=== PATIENT | female | born 1965 | race Caucasian/White ===

== ENCOUNTER → 2017-03-06 | Outpatient (CLI) | payer OTHER ==
[~2017-03-06] MED LIST: ACET500C OR; ALPR0.25 PO; AMBI10TA OR; CYMB1CAP4 PO; ENAL10TA2 OR; ENAL20TA PO; FIORICET OR; FOLI1TAB4 PO; HYDROCODONE OR; METO1TAB33 PO; OMEP40CA2 PO; VITAMIN D50000 UNT OR
--- NOTE | 2017-03-06 12:11 | REPMRS ---
Patient History The patient states she had a clinical breast exam in 02/2017. Patient is postmenopausal. Family history of breast cancer in paternal aunt at age 72 and breast cancer in paternal aunt at age 50 or over. Reductions of both breasts, 2010. Digital Woman Screen Mammo: March 06, 2017 - Exam #: [id number] Bilateral CC and MLO view(s) were taken. Technologist: Joanne Kowalski, Technologist Prior study comparison: July 23, 2016, left breast digital mammo diagnostic unilateral, performed at [facility]. March 05, 2016, digital woman screen mammo performed at [facility]. FINDINGS: The breast tissue is heterogeneously dense. This may lower the sensitivity of mammography. There has been no change in the appearance of the mammogram from the prior studies. There is a moderate amount of residual fibroglandular tissue which is fairly symmetric. There is no interval development of dominant mass, areas of architectural distortion, or clustered microcalcification typical of malignancy. ASSESSMENT: BI-RADS/ACR category 1 mammogram. Negative. Recommendation Routine screening mammogram in 1 year (for women over age 40). This mammogram was interpreted with the aid of an FDA-approved computer-aided dectection system. Electronically Signed By: Abhishek Fuchs MD 03/06/17 [id number]
== END ==
LOC: M WHC 10:36
PROVIDERS: ATTEND Nurse Practitioner Women's Health
DX: Z12.31 Encounter for screening mammogram for malignant neoplasm of breast (principal)

== ENCOUNTER → 2017-03-06 | Outpatient (REF) | payer OTHER | LOC: M SFHCWAGY 10:43 | PROVIDERS: ATTEND Nurse Practitioner Women's Health | DX: Z12.4 Encounter for screening for malignant neoplasm of cervix (principal) ==

== ENCOUNTER → 2017-03-19 | Outpatient (REF) | payer OTHER ==
[2017-03-19 15:12] LABS: ALBUMIN/GLOBULIN RATIO 1.03 (1.00-1.93); ALKALINE PHOSPHATASE 111 U/L (45-117); ALT/SGPT 135 U/L (12-78); ANION GAP 9 MEQ/L (8-16); AST/SGOT 82 U/L (15-37); BILIRUBIN,TOTAL 0.5 MG/DL (0.2-1.0); BLOOD UREA NITROGEN 10 MG/DL (7-18); CALCIUM LEVEL 9.5 MG/DL (8.5-10.1); CARBON DIOXIDE LEVEL 30 MEQ/L (21-32); CHLORIDE LEVEL 95 MEQ/L (98-107); CHOLESTEROL LEVEL 212 MG/DL (<200); CREATININE FOR GFR 0.62 MG/DL (0.55-1.02); FREE T4 0.87 NG/DL (0.76-1.46); GLOMERULAR FILTRATION RATE > 60.0 (>51); GLUCOSE, FASTING 93 MG/DL (70-105); POTASSIUM SERUM 3.4 MEQ/L (3.5-5.1); SODIUM LEVEL 134 MEQ/L (136-145); TOTAL PROTEIN 7.9 GM/DL (6.4-8.2); TRIGLYCERIDES LEVEL 96 MG/DL (<150)
== END ==
LOC: M SFHCPLAZ 11:07
PROVIDERS: ATTEND Nurse Practitioner Family
DX: F32.9 Major depressive disorder, single episode, unspecified (principal); I10 Essential (primary) hypertension

== ENCOUNTER → 2017-05-07 | Outpatient (REF) | payer OTHER ==
[2017-05-07 14:40] LABS: ALBUMIN/GLOBULIN RATIO 1.08 (1.00-1.93); ALKALINE PHOSPHATASE 106 U/L (45-117); ALT/SGPT 50 U/L (12-78); ANION GAP 10 MEQ/L (8-16); AST/SGOT 26 U/L (15-37); BILIRUBIN,TOTAL 0.5 MG/DL (0.2-1.0); BLOOD UREA NITROGEN 18 MG/DL (7-18); CALCIUM LEVEL 9.4 MG/DL (8.5-10.1); CARBON DIOXIDE LEVEL 31 MEQ/L (21-32); CHLORIDE LEVEL 98 MEQ/L (98-107); CREATININE FOR GFR 0.69 MG/DL (0.55-1.02); GLOMERULAR FILTRATION RATE > 60.0 (>51); GLUCOSE, FASTING 89 MG/DL (70-105); POTASSIUM SERUM 3.1 MEQ/L (3.5-5.1); SODIUM LEVEL 139 MEQ/L (136-145); TOTAL PROTEIN 7.7 GM/DL (6.4-8.2)
== END ==
LOC: M SFHCPLAZ 10:46
PROVIDERS: ATTEND Nurse Practitioner Family
DX: R74.8 Abnormal levels of other serum enzymes (principal)

== ENCOUNTER → 2017-05-11 | Outpatient (REF) | payer OTHER | LOC: M SFHCWAGY 13:29 | PROVIDERS: ATTEND Nurse Practitioner Women's Health | DX: R87.810 Cervical high risk human papillomavirus (HPV) DNA test positive (principal) ==

== ENCOUNTER → 2017-05-20 | Outpatient (REF) | payer OTHER ==
[2017-05-20 13:50] LABS: ANION GAP 5 MEQ/L (8-16); BLOOD UREA NITROGEN 12 MG/DL (7-18); CALCIUM LEVEL 9.3 MG/DL (8.5-10.1); CARBON DIOXIDE LEVEL 34 MEQ/L (21-32); CHLORIDE LEVEL 96 MEQ/L (98-107); CREATININE FOR GFR 0.71 MG/DL (0.55-1.02); GLOMERULAR FILTRATION RATE > 60.0 (>51); GLUCOSE, FASTING 86 MG/DL (70-105); POTASSIUM SERUM 3.4 MEQ/L (3.5-5.1); SODIUM LEVEL 135 MEQ/L (136-145)
== END ==
LOC: M SFHCPLAZ 11:10
PROVIDERS: ATTEND Nurse Practitioner Family
DX: J06.9 Acute upper respiratory infection, unspecified (principal); I10 Essential (primary) hypertension; R74.8 Abnormal levels of other serum enzymes; G43.109 Migraine with aura, not intractable, without status migrainosus

== ENCOUNTER → 2017-07-08 | Outpatient (REF) | payer OTHER ==
[2017-07-08 13:49] LABS: ANION GAP 7 MEQ/L (8-16); BLOOD UREA NITROGEN 17 MG/DL (7-18); CALCIUM LEVEL 9.2 MG/DL (8.5-10.1); CARBON DIOXIDE LEVEL 31 MEQ/L (21-32); CHLORIDE LEVEL 99 MEQ/L (98-107); CREATININE FOR GFR 0.67 MG/DL (0.55-1.02); GLOMERULAR FILTRATION RATE > 60.0 (>51); GLUCOSE, FASTING 85 MG/DL (70-105); POTASSIUM SERUM 3.9 MEQ/L (3.5-5.1); SODIUM LEVEL 137 MEQ/L (136-145)
== END ==
LOC: M SFHCPLAZ 11:07
PROVIDERS: ATTEND Nurse Practitioner Family
DX: I10 Essential (primary) hypertension (principal)

== ENCOUNTER 2017-07-30 00:30 | Inpatient (IN) | payer OTHER ==
[~2017-07-30] VITALS: Ht 149.9 cm; Wt 50.0 kg
[2017-07-30] MEDS ORDERED: TRAZ50TA11 PO (00:41)
[2017-07-30] MEDS ORDERED: ROBA750T4 PO (00:41)
[2017-07-30] MEDS ORDERED: NS 1,000 ML IV ONE (01:00)
[2017-07-30 01:06] LABS: BASO # 0.1 10^3/uL (0.0-0.2); BASO % 0.8 % (0.0-1.0); EOS # 0.4 10^3/uL (0.0-0.50); EOS % 3.8 % (0.0-3.0); IMMATURE GRANULOCYTE % 0.3 % (0-0); LYMPH # 3.8 10^3/uL (1.5-4.5); MEAN CORPUSCULAR HEMOGLOBIN 29.8 pg (27.0-33.0); MEAN CORPUSCULAR HGB CONC 34.5 g/dl (32.0-36.5); MEAN CORPUSCULAR VOLUME 86.2 fl (80.0-96.0); MONO # 0.7 10^3/uL (0.0-0.8); MONO % 7.8 % (0.0-5.0); NEUTROPHILS # 4.3 10^3/uL (1.8-7.7); NEUTROPHILS % 46.3 % (36.0-66.0); PLATELET COUNT, AUTOMATED 254 10^3/uL (150-450); RED CELL DISTRIBUTION WIDTH 11.9 % (11.5-14.5); WHITE BLOOD COUNT 9.3 10^3/uL (4.0-10.0)
[2017-07-30 01:12] LABS: VENOUS BASE EXCESS -0.1 (-2.0-2.0); VENOUS PARTIAL PRESSURE CO2 56.7 mmHg (38.0-50.0); VENOUS PARTIAL PRESSURE O2 30.7 mmHg (30.0-50.0); VENOUS STANDARD HCO3 23.1 MEQ/L; VENOUS TOTAL CO2 29.2 MEQ/L (24.0-28.0)
[2017-07-30 02:09] LABS: ABG BASE EXCESS -4.1 (-2.0-2.0); ABG HCO3 21.9 MEQ/L (22.0-26.0); ABG PARTIAL PRESSURE CO2 43.6 mmHg (35.0-45.0); ABG TOTAL CO2 23.2 MEQ/L (22.0-29.0); ABG pH (ARTERIAL) 7.319 UNITS (7.350-7.450)
[2017-07-30 02:11] LABS: ALBUMIN/GLOBULIN RATIO 0.91 (1.00-1.93); ALKALINE PHOSPHATASE 114 U/L (45-117); ALT/SGPT 54 U/L (12-78); ANION GAP 8 MEQ/L (8-16); AST/SGOT 36 U/L (7-37); BILIRUBIN,DIRECT < 0.1 MG/DL (0.0-0.2); BILIRUBIN,TOTAL 0.4 MG/DL (0.2-1.0); BLOOD UREA NITROGEN 10 MG/DL (7-18); CALCIUM LEVEL 8.9 MG/DL (8.5-10.1); CARBON DIOXIDE LEVEL 30 MEQ/L (21-32); CHLORIDE LEVEL 100 MEQ/L (98-107); GLOMERULAR FILTRATION RATE > 60.0 (>51); GLUCOSE, FASTING 111 MG/DL (70-105); POTASSIUM SERUM 3.1 MEQ/L (3.5-5.1); SODIUM LEVEL 138 MEQ/L (136-145); TOTAL PROTEIN 8.4 GM/DL (6.4-8.2)
[2017-07-30] MEDS ORDERED: POTASSIUM CHLORIDE 10 MEQ SR TABLET PO ONE (02:30)
[2017-07-30 02:43] LABS: METHADONE URINE NEGATIVE (NEGATIVE)
[2017-07-30 05:26] LABS: VENOUS O2 SATURATION 98.4 % (60.0-80.0); VENOUS PARTIAL PRESSURE CO2 43.4 mmHg (38.0-50.0); VENOUS PARTIAL PRESSURE O2 130.5 mmHg (30.0-50.0); VENOUS TOTAL CO2 24.1 MEQ/L (24.0-28.0)
--- NOTE | 2017-07-30 05:57 | ECGEPIP ---
Stationary ECG Study [facility] - ED Test Date: 2017-07-30 Pat Name: VITO ORTEGA Department: Room: - Gender: F [employer] Hand: LAURA : 1965 Requested By: TAWANDA Infante Order Number: [id number] Reading MD: Eladio Mike Measurements Intervals [place] Rate: 66 P: 47 MI: 148 QRS: 7 QRSD: 92 T: 20 QT: 427 QTc: 450 Interpretive Statements SINUS RHYTHM POSSIBLE LEFT ATRIAL ENLARGEMENT INCOMPLETE RIGHT BUNDLE BRANCH BLOCK NSTTW ABNORMALITIES Electronically Signed On 07-30-2017 5:57:30 EST by Eladio Mike
[2017-07-30] MEDS: CHLORTHALIDONE 12.5MG PER 1/2 TABLET PO SCH (09:00)
[2017-07-30] MEDS ORDERED: ESCITALOPRAM OXALATE 10 MG TAB (LEXAPRO) PO SCH (09:00)
[2017-07-30] MEDS: METOPROLOL SUCC (TopROL XL) 100MG *XL* TAB PO SCH (09:00)
[2017-07-30] MEDS: MULTIVITAMINS/MINERALS THERAP 1 TAB PO SCH (09:00)
[2017-07-30] MEDS ORDERED: MOM 30ML SUSPENSION UDC PO PRN (09:30)
[2017-07-30] MEDS ORDERED: hydrOXYzine 50 MG TAB PO PRN ×2 (09:30→14:00)
[2017-07-30 10:50] VITALS: BP 136/65
[2017-07-30] MEDS ORDERED: LORazepam 2 MG TAB PO PRN (14:15)
[2017-07-30] MEDS: OMEPRAZOLE 20 MG CAP PO SCH (14:52)
[2017-07-30] MEDS: FOLIC ACID 1 MG TAB PO SCH (14:53)
[2017-07-30] MEDS: valACYclovir HCL 500 MG TAB PO SCH (14:53)
[2017-07-30] MEDS: POTASSIUM CHLORIDE 10 MEQ SR TABLET PO SCH (14:53)
[2017-07-30] MEDS: THIAMINE 100 MG TAB PO SCH ×2 (14:53→21:48)
[2017-07-30] MEDS: ENALAPRIL MALEATE 10 MG TAB PO SCH (14:55)
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
[2017-07-30] MEDS: DULoxetine 30 MG CAP (CYMBALTA) PO SCH (17:53)
[2017-07-30 18:00] VITALS: BP 113/81
[2017-07-30] MEDS: traZODone 50 MG TAB PO PRN (21:48)
[2017-07-31 06:42] VITALS: BP_SYST 140; BP_SYST 158; BP_DIAS 89; BP_DIAS 90
[2017-07-31] MEDS: valACYclovir HCL 500 MG TAB PO SCH (09:35)
[2017-07-31] MEDS: CHLORTHALIDONE 12.5MG PER 1/2 TABLET PO SCH (09:36)
[2017-07-31] MEDS: ENALAPRIL MALEATE 10 MG TAB PO SCH (09:36)
[2017-07-31] MEDS: METOPROLOL SUCC (TopROL XL) 100MG *XL* TAB PO SCH (09:36)
[2017-07-31] MEDS: OMEPRAZOLE 20 MG CAP PO SCH (09:37)
[2017-07-31] MEDS: FOLIC ACID 1 MG TAB PO SCH (09:37)
[2017-07-31] MEDS: DULoxetine 30 MG CAP (CYMBALTA) PO SCH (09:37)
[2017-07-31] MEDS: THIAMINE 100 MG TAB PO SCH ×2 (09:37→22:09)
[2017-07-31] MEDS: MULTIVITAMINS/MINERALS THERAP 1 TAB PO SCH (09:37)
[2017-07-31] MEDS: POTASSIUM CHLORIDE 10 MEQ SR TABLET PO SCH (09:37)
[2017-07-31 10:59] VITALS: BP 140/90
--- NOTE | 2017-07-31 10:59 | MHIPNPDOC ---
[facility] Progress Note Progress Note DATE OF SERVICE: 07/31/17 HISTORY: Patient says she was trying to sleep and tying to relax and for that reason she took more trazodone and muscle relaxants. She adds: " I know it was really stupid and I shouldn't have done it but I know I don't belong in this place" History of Present Illness HISTORY OF THE PRESENT ILLNESS: As per ED note: "Pt has a hx of alcohol abuse and depression. Texted her BF last night after being out drinking with a friend , and made suicidal statements, saying "goodby". Pt has multiple stressors including the holidays and loss of her 3 years ago. Pt denies current SI , although does admit to recent suicidal thoughts. She has a long hx of poor sleep and says she was "Just trying to sleep" last night when she ingested unknown number of pills (per BF, this included muscle relaxers, xanax and Trazodone). She sees a therapist bi-weekly and receives medications through her PCP. Pt is minimizing her situation during interview.She does admit to increasing her use of alcohol since her 's . The BF says pt has been using more alcohol than she will admit to and shared pt's text messages with this typewriters functional tester. He rushed over to pt's house last night and found her incoherent and then brought her to the ER." VITAL SIGNS: See below. NEW TEST RESULTS: N/A CURRENT MEDICATIONS: See below. MENTAL STATUS EXAMINATION: Patient is a 52year old female, who is alert, dressed in personal clothes, with good eye contact, good hygiene, fairly groomed. Speech: Is Normal in rate, tone and volume. Language skills are Good. Thought processes including: Linear, rational. Thought content: stephon believes she doesn't need to be here, she can follow up as an OP. Abstract reasoning, and computation: Fair. Description of associations: Good Description of abnormal or psychotic thoughts: Denies SI, denies HI, denies thought delusions, denies a/V hallucinations Judgment:Limited. Insight: Limited. Orientation: oriented x 3. Recent and remote memory: Oriented x 3. Attention span and concentration: Fair. Language: Fair. Fund of knowledge: Fair. Mood: Anxious. Affect: Anxious. DIAGNOSES: 1. Major Depressive Disorder, severe, recurrent 2. Alcohol use disorder ASSESSMENT: Patient continues to minimize her mental illness, but admits, like she did yesterday, that she needs help with the alcohol abuse. She says she went to a psychiatrist in [place] before and he over medicated her. I told her we can try to connect her to [facility] if her insurance permits, ans she won't be over medicated. Will try to discharge her on Thursday. MANAGEMENT PLAN: Discharge her on Thursday, ill continue on the same medications TIME SPENT: 20 minutes. Vital Signs Vital Signs Date Time Temp Pulse Resp B/P (MAP) Pulse Ox O2 Delivery O2 Flow Rate FiO2 07/31/17 09:36 83 140/90 07/31/17 06:42 97.7 18 07/30/17 10:50 100 Room Air Current Medications Current Medications Acetaminophen (Tylenol Tab) 650 mg Q6HP PRN PO HEADACHE or DISCOMFORT; Start 07/30/17 at 09:30; Stop 08/29/17 at 09:29 Chlorthalidone (Hygroton, Chlorthalidone) 12.5 mg DAILY PO Last administered on 07/31/17 09:36; Start 07/30/17 at 09:00; Stop 08/29/17 at 08:59 Duloxetine HCl (Cymbalta) 60 mg DAILY PO Last administered on 07/31/17 09:37; Start 07/30/17 at 09:00; Stop 08/29/17 at 08:59 Enalapril Maleate (Vasotec) 20 mg DAILY PO Last administered on 07/31/17 09:36 ; Start 07/30/17 at 09:00; Stop 08/29/17 at 08:59 Escitalopram Oxalate (Lexapro) 20 mg DAILY PO Last administered on 07/30/17 09 :54; Start 07/30/17 at 09:00; Stop 07/30/17 at 17:14; Status DC Folic Acid (Folic Acid) 1 mg DAILY PO Last administered on 07/31/17 09:37; Start 07/30/17 at 09:00; Stop 08/29/17 at 08:59 Hydroxyzine HCl (Atarax) 50 mg Q6HP PRN PO ANXIETY/AGITATION; Start 07/30/17 at 09:30; Stop 08/29/17 at 09:29 Hydroxyzine HCl (Atarax) 50 mg Q6HP PRN PO ANXIETY/AGITATION; Start 07/30/17 at 14:00; Stop 08/29/17 at 13:59; Status Cancel Lorazepam (Ativan) 2 mg ASDIRECTED PRN PO SEE PROTOCOL; Start 07/30/17 at 14:15 ; Stop 08/06/17 at 14:14 Magnesium Hydroxide (Milk Of Magnesia) 30 ml DAILYPRN PRN PO CONSTIPATION; Start 07/30/17 at 09:30; Stop 08/29/17 at 09:29 Metoprolol Succinate (TopROL XL) 100 mg DAILY PO Last administered on 09:36; Start 07/30/17 at 09:00; Stop 08/29/17 at 08:59 Multivitamins (Theragram-M) 1 tab DAILY PO Last administered on 07/31/17 09:37 ; Start 07/30/17 at 09:00; Stop 08/29/17 at 08:59 Omeprazole (PriLOSEC) 40 mg DAILY PO Last administered on 07/31/17 09:37; Start 07/30/17 at 09:00; Stop 08/29/17 at 08:59 Potassium Chloride (Micro-K Extencaps) 20 meq DAILY PO Last administered on 09:37; Start 07/30/17 at 09:00; Stop 08/29/17 at 08:59 Thiamine HCl (Thiamine HCl) 100 mg BID PO Last administered on 07/31/17 09:37 ; Start 07/30/17 at 09:00; Stop 08/01/17 at 23:59 Trazodone HCl (Desyrel) 50 mg QHSP PRN PO INSOMNIA Last administered on 21:48; Start 07/30/17 at 09:30; Stop 08/29/17 at 09:29 Valacyclovir HCl (Valtrex) 500 mg DAILY PO Last administered on 07/31/17 09:35 ; Start 07/30/17 at 09:00; Stop 08/06/17 at 08:59 Allergies Coded Allergies: Aspirin (Verified Allergy, Intermediate, swelling and hives, 07/30/17) Penicillins (Verified Allergy, Intermediate, SWELLING AND HIVES, 07/30/17) VALENTIN MCCLELLAN MD Jul 31, 2017 10:59
[2017-07-31 18:00] VITALS: BP 118/76
[2017-07-31 18:58] VITALS: BP 118/76
[2017-07-31] MEDS: traZODone 50 MG TAB PO PRN (22:09)
[2017-07-31] MEDS: ACETAMINOPHEN TAB 650MG DOSE (2X325MG) PO PRN (22:53)
[2017-08-01 06:00] VITALS: BP 114/67
[2017-08-01] MEDS: METOPROLOL SUCC (TopROL XL) 100MG *XL* TAB PO SCH (09:21)
[2017-08-01] MEDS: OMEPRAZOLE 20 MG CAP PO SCH (09:22)
[2017-08-01] MEDS: ENALAPRIL MALEATE 10 MG TAB PO SCH (09:22)
[2017-08-01] MEDS: FOLIC ACID 1 MG TAB PO SCH (09:22)
[2017-08-01] MEDS: THIAMINE 100 MG TAB PO SCH ×2 (09:22→21:54)
[2017-08-01] MEDS: DULoxetine 30 MG CAP (CYMBALTA) PO SCH (09:22)
[2017-08-01] MEDS: valACYclovir HCL 500 MG TAB PO SCH (09:22)
[2017-08-01] MEDS: CHLORTHALIDONE 12.5MG PER 1/2 TABLET PO SCH (09:22)
[2017-08-01] MEDS: MULTIVITAMINS/MINERALS THERAP 1 TAB PO SCH (09:23)
[2017-08-01] MEDS: POTASSIUM CHLORIDE 10 MEQ SR TABLET PO SCH (09:23)
[2017-08-01] MEDS: ACETAMINOPHEN TAB 650MG DOSE (2X325MG) PO PRN (15:12)
--- NOTE | 2017-08-01 16:37 | MHIPNPDOC ---
[facility] Progress Note Progress Note DATE OF SERVICE: 08/01/17 HISTORY: Patient reports improving mood, denies depression, denies SI intent and plan. Denies diaphoresis, craving, tremor, and anxiety from ETOH withdrawal. States that she normally has poor sleep, only slept 2-4 hours last night despite taking trazodone. Did not endorse AVH. Patient eager to go home on Thursday. VITAL SIGNS: See below. NEW TEST RESULTS: NA CURRENT MEDICATIONS: See below. MENTAL STATUS EXAMINATION: Behavior: calm, sitting in bed, reading, related Speech: normal RRVT Thought processes including: linear Thought content: appropriate to conversation Judgment: fair Insight: fair Orientation: AAOx3 Mood: "OK, better". Affect: neutral, appropriate DIAGNOSES: 1. MDD, severe, recurrent 2. Alcohol use disorder ASSESSMENT: Pt not in ETOH withdrawal. Patient gives the impression that her psychiatric symptoms are under control. Regardless, no acute psychiatric issues. MANAGEMENT PLAN: - Maintain the same medications - Discharge on Thursday as per Dr. Salguero TIME SPENT: 20 minutes. Vital Signs Vital Signs Date Time Temp Pulse Resp B/P (MAP) Pulse Ox O2 Delivery O2 Flow Rate FiO2 08/01/17 09:22 114/67 08/01/17 09:21 66 08/01/17 06:00 96.7 14 Room Air 07/30/17 10:50 100 Current Medications Current Medications Acetaminophen (Tylenol Tab) 650 mg Q6HP PRN PO HEADACHE or DISCOMFORT Last administered on 08/01/17 15:12; Start 07/30/17 at 09:30; Stop 08/29/17 at 09:29 Chlorthalidone (Hygroton, Chlorthalidone) 12.5 mg DAILY PO Last administered on 08/01/17 09:22; Start 07/30/17 at 09:00; Stop 08/29/17 at 08:59 Duloxetine HCl (Cymbalta) 60 mg DAILY PO Last administered on 08/01/17 09:22; Start 07/30/17 at 09:00; Stop 08/29/17 at 08:59 Enalapril Maleate (Vasotec) 20 mg DAILY PO Last administered on 08/01/17 09:22 ; Start 07/30/17 at 09:00; Stop 08/29/17 at 08:59 Escitalopram Oxalate (Lexapro) 20 mg DAILY PO Last administered on 07/30/17 09 :54; Start 07/30/17 at 09:00; Stop 07/30/17 at 17:14; Status DC Folic Acid (Folic Acid) 1 mg DAILY PO Last administered on 08/01/17 09:22; Start 07/30/17 at 09:00; Stop 08/29/17 at 08:59 Hydroxyzine HCl (Atarax) 50 mg Q6HP PRN PO ANXIETY/AGITATION; Start 07/30/17 at 09:30; Stop 08/29/17 at 09:29 Hydroxyzine HCl (Atarax) 50 mg Q6HP PRN PO ANXIETY/AGITATION; Start 07/30/17 at 14:00; Stop 08/29/17 at 13:59; Status Cancel Lorazepam (Ativan) 2 mg ASDIRECTED PRN PO SEE PROTOCOL; Start 07/30/17 at 14:15 ; Stop 08/06/17 at 14:14 Magnesium Hydroxide (Milk Of Magnesia) 30 ml DAILYPRN PRN PO CONSTIPATION; Start 07/30/17 at 09:30; Stop 08/29/17 at 09:29 Metoprolol Succinate (TopROL XL) 100 mg DAILY PO Last administered on 09:21; Start 07/30/17 at 09:00; Stop 08/29/17 at 08:59 Multivitamins (Theragram-M) 1 tab DAILY PO Last administered on 08/01/17 09:23 ; Start 07/30/17 at 09:00; Stop 08/29/17 at 08:59 Omeprazole (PriLOSEC) 40 mg DAILY PO Last administered on 08/01/17 09:22; Start 07/30/17 at 09:00; Stop 08/29/17 at 08:59 Potassium Chloride (Micro-K Extencaps) 20 meq DAILY PO Last administered on 09:23; Start 07/30/17 at 09:00; Stop 08/29/17 at 08:59 Thiamine HCl (Thiamine HCl) 100 mg BID PO Last administered on 08/01/17 09:22 ; Start 07/30/17 at 09:00; Stop 08/01/17 at 23:59 Trazodone HCl (Desyrel) 50 mg QHSP PRN PO INSOMNIA Last administered on 22:09; Start 07/30/17 at 09:30; Stop 08/29/17 at 09:29 Valacyclovir HCl (Valtrex) 500 mg DAILY PO Last administered on 08/01/17 09:22 ; Start 07/30/17 at 09:00; Stop 08/06/17 at 08:59 Allergies Coded Allergies: Aspirin (Verified Allergy, Intermediate, swelling and hives, 07/30/17) Penicillins (Verified Allergy, Intermediate, SWELLING AND HIVES, 07/30/17) LUPE ORTA MD Aug 01, 2017 16:37
[2017-08-01 18:00] VITALS: BP 142/77
[2017-08-01] MEDS: traZODone 50 MG TAB PO PRN (21:54)
[2017-08-01 23:07] VITALS: BP 130/68
[2017-08-02 07:25] VITALS: BP 119/68
[2017-08-02] MEDS: OMEPRAZOLE 20 MG CAP PO SCH (08:44)
[2017-08-02] MEDS: DULoxetine 30 MG CAP (CYMBALTA) PO SCH (08:44)
[2017-08-02] MEDS: valACYclovir HCL 500 MG TAB PO SCH (08:44)
[2017-08-02] MEDS: METOPROLOL SUCC (TopROL XL) 100MG *XL* TAB PO SCH (08:44)
[2017-08-02] MEDS: ENALAPRIL MALEATE 10 MG TAB PO SCH (08:45)
[2017-08-02] MEDS: CHLORTHALIDONE 12.5MG PER 1/2 TABLET PO SCH (08:45)
[2017-08-02] MEDS: POTASSIUM CHLORIDE 10 MEQ SR TABLET PO SCH (08:45)
[2017-08-02] MEDS: MULTIVITAMINS/MINERALS THERAP 1 TAB PO SCH (08:45)
[2017-08-02] MEDS: FOLIC ACID 1 MG TAB PO SCH (08:45)
[2017-08-02] MEDS: ACETAMINOPHEN TAB 650MG DOSE (2X325MG) PO PRN (08:48)
--- NOTE | 2017-08-02 11:42 | HPE ---
DATE OF ADMISSION: 07/30/2017 Please refer to psychiatric history and evaluation for further details on this admission. This examination and history is intended for medical issues, which may need treatment, followup, or consult on this 52-year-old female. PRIMARY CARE PROVIDER: Alla Martinez nurse practitioner ALLERGIES: ASPIRIN and PENICILLIN. SOCIAL HISTORY: She is . Ethyl alcohol (EtOH): She drinks 5-10 beers daily. Smokes none. Recreational drug use none. PAST MEDICAL HISTORY: Hypertension. PAST SURGICAL HISTORY: Tubal ligation and breast reduction. LABORATORY STUDIES: WBC 9.3, hemoglobin 14.2, hematocrit 41.1, platelets 254. Sodium 138, potassium was slightly low at 3.1, chloride 100, CO2 30, anion gap 8, BUN 10, creatinine 0.60. EtOH was 0.223. HOME MEDICATIONS: - alprazolam 0.25 mg by mouth daily - duloxetine 20 mg by mouth daily - enalapril 20 mg by mouth daily - folic acid 1 mg by mouth daily - methocarbamol 750 mg by mouth daily - metoprolol succinate 100 mg by mouth daily - omeprazole 40 mg by mouth daily - trazodone 50 mg by mouth nightly - vitamin D 50,000 units a week FAMILY HISTORY: Noncontributory. Ten systems review was done. The patient had no complaints. It was unremarkable. OBJECTIVE: A 52-year-old cooperative female in no acute distress. Height 59 inches, weight 52 kg, body mass index (BMI) 23.2. The patient is alert and oriented times three. Pupils are equal and react to light. Extraocular movements intact. Cornea and sclerae clear. Conjunctivae normal. No facial asymmetry. Pharynx, tongue, gums pink and moist. Tongue is midline. NECK: Is supple without lymphadenopathy. No thyromegaly. No goiter. Carotids 2+ without bruit. CHEST: Clear to auscultation without wheeze or retraction. HEART: Is regular. ABDOMEN: Benign. Bowel sounds positive. GENITOURINARY ()/RECTAL: Not done. EXTREMITIES: Show equal strength, full range of motion. No cyanosis, clubbing, or edema. Peripheral pulses equal and palpable bilaterally. SKIN: Is warm and dry. IMPRESSION AND PLAN: 1. Psychiatric plan per psychiatry. 2. History of hypertension, stable. Continue enalapril and metoprolol. 3. Gastroesophageal reflux disease (GERD), stable. 4. Vitamin D deficiency. Continue replacement.
--- NOTE | 2017-08-02 16:57 | MHIPNPDOC ---
[facility] Progress Note Progress Note DATE OF SERVICE: 08/02/17 HISTORY: Patient denies withdrawal symptoms, denies anxiety, depression, craving , sweating, tremor. Reports falling asleep very late, and sleeping through morning. VITAL SIGNS: See below. NEW TEST RESULTS: NA CURRENT MEDICATIONS: See below. MENTAL STATUS EXAMINATION: Behavior: calm, sitting in bed, reading, related Speech: normal RRVT Thought processes including: linear Thought content: appropriate to conversation Judgment: fair Insight: fair Orientation: AAOx3 Mood: "OK, better". Affect: neutral, appropriate DIAGNOSES: 1. MDD, severe, recurrent 2. Alcohol use disorder ASSESSMENT: Pt not in ETOH withdrawal. Patient gives the impression that her psychiatric symptoms are under control. Regardless, no acute psychiatric issues. MANAGEMENT PLAN: - Maintain the same medications - Discharge on Thursday as per Dr. Salguero TIME SPENT: 20 minutes. Vital Signs Vital Signs Date Time Temp Pulse Resp B/P (MAP) Pulse Ox O2 Delivery O2 Flow Rate FiO2 08/02/17 08:45 119/68 08/02/17 08:44 64 08/02/17 07:25 97.8 16 08/01/17 06:00 Room Air 07/30/17 10:50 100 Current Medications Current Medications Acetaminophen (Tylenol Tab) 650 mg Q6HP PRN PO HEADACHE or DISCOMFORT Last administered on 08/02/17 08:48; Start 07/30/17 at 09:30; Stop 08/29/17 at 09:29 Chlorthalidone (Hygroton, Chlorthalidone) 12.5 mg DAILY PO Last administered on 08/02/17 08:45; Start 07/30/17 at 09:00; Stop 08/29/17 at 08:59 Duloxetine HCl (Cymbalta) 60 mg DAILY PO Last administered on 08/02/17 08:44 ; Start 07/30/17 at 09:00; Stop 08/29/17 at 08:59 Enalapril Maleate (Vasotec) 20 mg DAILY PO Last administered on 08/02/17 08: 45; Start 07/30/17 at 09:00; Stop 08/29/17 at 08:59 Escitalopram Oxalate (Lexapro) 20 mg DAILY PO Last administered on 07/30/17 09 :54; Start 07/30/17 at 09:00; Stop 07/30/17 at 17:14; Status DC Folic Acid (Folic Acid) 1 mg DAILY PO Last administered on 08/02/17 08:45; Start 07/30/17 at 09:00; Stop 08/29/17 at 08:59 Hydroxyzine HCl (Atarax) 50 mg Q6HP PRN PO ANXIETY/AGITATION; Start 07/30/17 at 09:30; Stop 08/29/17 at 09:29 Hydroxyzine HCl (Atarax) 50 mg Q6HP PRN PO ANXIETY/AGITATION; Start 07/30/17 at 14:00; Stop 08/29/17 at 13:59; Status Cancel Lorazepam (Ativan) 2 mg ASDIRECTED PRN PO SEE PROTOCOL; Start 07/30/17 at 14:15 ; Stop 08/06/17 at 14:14 Magnesium Hydroxide (Milk Of Magnesia) 30 ml DAILYPRN PRN PO CONSTIPATION; Start 07/30/17 at 09:30; Stop 08/29/17 at 09:29 Metoprolol Succinate (TopROL XL) 100 mg DAILY PO Last administered on 08:44; Start 07/30/17 at 09:00; Stop 08/29/17 at 08:59 Multivitamins (Theragram-M) 1 tab DAILY PO Last administered on 08/02/17 08: 45; Start 07/30/17 at 09:00; Stop 08/29/17 at 08:59 Omeprazole (PriLOSEC) 40 mg DAILY PO Last administered on 08/02/17 08:44; Start 07/30/17 at 09:00; Stop 08/29/17 at 08:59 Potassium Chloride (Micro-K Extencaps) 20 meq DAILY PO Last administered on 08:45; Start 07/30/17 at 09:00; Stop 08/29/17 at 08:59 Thiamine HCl (Thiamine HCl) 100 mg BID PO Last administered on 08/01/17 21:54 ; Start 07/30/17 at 09:00; Stop 08/01/17 at 23:59; Status DC Trazodone HCl (Desyrel) 50 mg QHSP PRN PO INSOMNIA Last administered on 21:54; Start 07/30/17 at 09:30; Stop 08/29/17 at 09:29 Valacyclovir HCl (Valtrex) 500 mg DAILY PO Last administered on 08/02/17t 08: 44; Start 07/30/17 at 09:00; Stop 08/06/17 at 08:59 Allergies Coded Allergies: Aspirin (Verified Allergy, Intermediate, swelling and hives, 07/30/17) Penicillins (Verified Allergy, Intermediate, SWELLING AND HIVES, 07/30/17) LUPE ORTA MD Aug 02, 2017 16:57
[2017-08-02 18:00] VITALS: BP 122/56
[2017-08-02] MEDS: traZODone 50 MG TAB PO PRN (21:44)
[2017-08-02 23:52] VITALS: BP 122/60
[2017-08-03 06:00] VITALS: BP 107/61
[2017-08-03] MEDS: OMEPRAZOLE 20 MG CAP PO SCH (08:36)
[2017-08-03] MEDS: DULoxetine 30 MG CAP (CYMBALTA) PO SCH (08:36)
[2017-08-03] MEDS: METOPROLOL SUCC (TopROL XL) 100MG *XL* TAB PO SCH (08:36)
[2017-08-03] MEDS: FOLIC ACID 1 MG TAB PO SCH (08:36)
[2017-08-03] MEDS: MULTIVITAMINS/MINERALS THERAP 1 TAB PO SCH (08:36)
[2017-08-03 08:37] VITALS: BP 150/72
[2017-08-03] MEDS: valACYclovir HCL 500 MG TAB PO SCH (08:37)
[2017-08-03] MEDS: ENALAPRIL MALEATE 10 MG TAB PO SCH (08:37)
[2017-08-03] MEDS: POTASSIUM CHLORIDE 10 MEQ SR TABLET PO SCH (08:37)
[2017-08-03] MEDS: CHLORTHALIDONE 12.5MG PER 1/2 TABLET PO SCH (08:37)
[2017-08-03] MEDS: ACETAMINOPHEN TAB 650MG DOSE (2X325MG) PO PRN (08:38)
[2017-08-03] MEDS ORDERED: HYDRO50TAB PO (10:10)
[2017-08-03] MEDS ORDERED: DULO30CA PO (10:10)
[2017-08-03] MEDS ORDERED: VALA500T2 PO (10:16)
--- NOTE | 2017-08-05 21:22 | MHDSPDOC ---
[facility] Discharge Summary Discharge Summary DATE OF ADMISSION: Jul 30, 2017 at 09:40 DATE OF DISCHARGE: Aug 03, 2017 at 11:45 DISCHARGE DIAGNOSES: 1. MDD, severe, recurrent 2. Alcohol use disorder REASON FOR ADMISSION: Patient says she was trying to sleep and tying to relax and for that reason she took more trazodone and muscle relaxants. She adds: " I know it was really stupid and I shouldn't have done it but I know I don't belong in this place" History of Present Illness HISTORY OF THE PRESENT ILLNESS: As per ED note: "Pt has a hx of alcohol abuse and depression. Texted her BF last night after being out drinking with a friend , and made suicidal statements, saying "goodby". Pt has multiple stressors including the holidays and loss of her 3 years ago. Pt denies current SI , although does admit to recent suicidal thoughts. She has a long hx of poor sleep and says she was "Just trying to sleep" last night when she ingested unknown number of pills (per BF, this included muscle relaxers, xanax and Trazodone). She sees a therapist bi-weekly and receives medications through her PCP. Pt is minimizing her situation during interview.She does admit to increasing her use of alcohol since her 's . The BF says pt has been using more alcohol than she will admit to and shared pt's text messages with this conventional underwriter. He rushed over to pt's house last night and found her incoherent and then brought her to the ER." CONSULTANTS INVOLVED: None. TREATMENT AND PROGRESS ON THE UNIT : Patient tried to minimize his symptoms and her overdose saying since her admission that she just was trying to relax and not kill herself. She said that she knew she had problems with alcohol abuse, she said she knew what she did was stupid, but she never intended to kill herself. She wanted to be discharged 24 hours after she got admitted and I explained that was not possible, we neeeded to observe her, she needed to attend groups to learn coping skills. She said she had a therapist, Dr. Riggs and she says that she has been working on her grief lately with her therapist because the Holidays remind her of her who a couple of years ago after suffering leukemia and a brain tumor. She expressed her pain, said it was awfully painful to see him suffer and extinguish. She said her parents were never there for her when she was a child, she never felt supported by them and at the time she said she counts with the support of her BF and one of her friends. During her admission and her stay, she refused to change antidepressants, said she had been on Cymbalta and it had worked for her.She attended groups, complied with medications and on the 11, she was ready to be discharged. HOSPITAL COURSE: As above DISCHARGE ASSESSMENT: Patient was not in danger to self or others, she was not suicidal, not homicidal and not psychotic. MENTAL STATUS EXAMINATION ON DISCHARGE: Patient is a 52year old female, who is alert, dressed in personal clothes, with good eye contact, good hygiene, fairly groomed. Speech: Is Normal in rate, tone and volume, spontaneous and fluent Language skills are Good. Thought processes including: Linear, rational. Thought content: Focused on her discharge Abstract reasoning, and computation: Fair. Description of associations: Good Description of abnormal or psychotic thoughts: Denies SI, denies HI, denies thought delusions, denies a/V hallucinations Judgment:Improved Insight: Improved Orientation: oriented x 3. Recent and remote memory: Intact Attention span and concentration: Fair. Language: Fair. Fund of knowledge: Fair. Mood: Euthymic Affect: Euthymic MEDICATIONS ON DISCHARGE: Duloxetine Hcl (Cymbalta) 30 Mg Cap, 60 MG PO DAILY for DEPRESSION, #14 Enalapril Maleate (Enalapril Maleate) 20 Mg Tab, 20 MG PO DAILY, (Reported) Trazodone HCl (Trazodone HCl) 50 Mg Tab, 50 MG PO QHSP, (Reported) Valacyclovir HCl (Valacyclovir HCl) 500 Mg Tab, 500 MG PO DAILY for HERPES, #5 Vitamin D (Vitamin D) 50,000 Units Cap, 50,000 UNT OR 1XWK, (Reported) Scheduled PRN Hydroxyzine HCl (Hydroxyzine HCl) 50 Mg Tab, 50 MG PO Q6HP PRN for ANXIETY/ AGITATION, #28 Miscellaneous Medications Alprazolam (Alprazolam) 0.25 Mg Tab, 0.25 MG PO, (Reported) Folic Acid (Folic Acid) 1 Mg Tab, Unknown Dose PO, (Reported) Metoprolol Succinate (Metoprolol Succinate ER) 100 Mg Tab, 100 MG PO, (Reported) Omeprazole (Omeprazole) 40 Mg Cap, 40 MG PO, (Reported) PLAN/FOLLOWUP ARRANGEMENTS: * Mental Health Appt 1 * [facility] * Established With This Provider Yes * Therapist Dr Riggs * Date Aug 07, 2017 * Time 11:00 * * Additional information [id number] [facility] [id number] Follow Up Care Education Label * Chemical Dependency Appt1 * [facility] Dependency [facility] * Established With This Provider No * Address of Clinic or Practice [address] [facility] * * Additional information walk in Tu & Th 8-5 pm Follow Up Care Education Label * Chemical Dependency Appt2 * Chemical Dependency [facility] * Established With This Provider Yes * Address of Clinic or Practice [address] [facility] * * Additional information The amount of time spent in the coordination of care for this patient was approximately 30 minutes. Vital Signs/I&Os Vital Signs Date Time Temp Pulse Resp B/P (MAP) Pulse Ox O2 Delivery O2 Flow Rate FiO2 08/03/17 08:37 150/72 08/03/17 08:36 60 08/03/17 06:00 96.5 14 08/01/17 06:00 Room Air 07/30/17 10:50 100 Medications Scheduled Duloxetine Hcl (Cymbalta) 30 Mg Cap, 60 MG PO DAILY for DEPRESSION, #14 Enalapril Maleate (Enalapril Maleate) 20 Mg Tab, 20 MG PO DAILY, (Reported) Trazodone HCl (Trazodone HCl) 50 Mg Tab, 50 MG PO QHSP, (Reported) Valacyclovir HCl (Valacyclovir HCl) 500 Mg Tab, 500 MG PO DAILY for HERPES, #5 Vitamin D (Vitamin D) 50,000 Units Cap, 50,000 UNT OR 1XWK, (Reported) Scheduled PRN Hydroxyzine HCl (Hydroxyzine HCl) 50 Mg Tab, 50 MG PO Q6HP PRN for ANXIETY/ AGITATION, #28 Miscellaneous Medications Alprazolam (Alprazolam) 0.25 Mg Tab, 0.25 MG PO, (Reported) Folic Acid (Folic Acid) 1 Mg Tab, Unknown Dose PO, (Reported) Metoprolol Succinate (Metoprolol Succinate ER) 100 Mg Tab, 100 MG PO, (Reported) Omeprazole (Omeprazole) 40 Mg Cap, 40 MG PO, (Reported) Allergies Coded Allergies: Aspirin (Verified Allergy, Intermediate, swelling and hives, 07/30/17) Penicillins (Verified Allergy, Intermediate, SWELLING AND HIVES, 07/30/17) VALENTIN MCCLELLAN MD Aug 05, 2017 21:22
== END 2017-08-03 11:45 | disposition home or self-care (01) | DRG 751 ==
LOC: M ED 00:30 → M ED INP 09:40 → M PSY 10:42
PROVIDERS: ADMIT Psychiatry & Neurology Psychiatry; ATTEND Psychiatry & Neurology Psychiatry
DX: F33.2 Major depressive disorder, recurrent severe without psychotic features (principal); E55.9 Vitamin D deficiency, unspecified; R45.851 Suicidal ideations; F10.10 Alcohol abuse, uncomplicated; K21.9 Gastro-esophageal reflux disease without esophagitis; I10 Essential (primary) hypertension; Z79.899 Other long term (current) drug therapy; Z88.0 Allergy status to penicillin; Z88.6 Allergy status to analgesic agent; Z98.51 Tubal ligation status

== ENCOUNTER → 2017-08-11 | Outpatient (REF) | payer OTHER ==
[~2017-08-11] MED LIST changes: +DULO30CA PO; +HYDRO50TAB PO; +ROBA750T4 PO; +TRAZ50TA11 PO; +VALA500T2 PO
[2017-08-11 12:42] LABS: ALBUMIN 4.2 GM/DL (3.2-5.2); ALBUMIN/GLOBULIN RATIO 1.14 (1.00-1.93); ALKALINE PHOSPHATASE 106 U/L (45-117); ALT/SGPT 58 U/L (12-78); ANION GAP 7 MEQ/L (8-16); AST/SGOT 29 U/L (7-37); BILIRUBIN,TOTAL 0.6 MG/DL (0.2-1.0); BLOOD UREA NITROGEN 12 MG/DL (7-18); CALCIUM LEVEL 9.8 MG/DL (8.5-10.1); CARBON DIOXIDE LEVEL 33 MEQ/L (21-32); CHLORIDE LEVEL 97 MEQ/L (98-107); CREATININE FOR GFR 0.75 MG/DL (0.55-1.02); GLOMERULAR FILTRATION RATE > 60.0 (>51); GLUCOSE, FASTING 106 MG/DL (70-105); POTASSIUM SERUM 3.1 MEQ/L (3.5-5.1); SODIUM LEVEL 137 MEQ/L (136-145); TOTAL PROTEIN 7.9 GM/DL (6.4-8.2)
== END ==
LOC: M SFHCPLAZ 10:54
PROVIDERS: ATTEND Nurse Practitioner Family
DX: F32.9 Major depressive disorder, single episode, unspecified (principal); I10 Essential (primary) hypertension

== ENCOUNTER → 2017-08-27 | Outpatient (REF) | payer OTHER ==
[2017-08-27 16:08] LABS: ANION GAP 6 MEQ/L (8-16); BLOOD UREA NITROGEN 17 MG/DL (7-18); CALCIUM LEVEL 9.3 MG/DL (8.5-10.1); CARBON DIOXIDE LEVEL 29 MEQ/L (21-32); CHLORIDE LEVEL 105 MEQ/L (98-107); CREATININE FOR GFR 0.69 MG/DL (0.55-1.02); GLOMERULAR FILTRATION RATE > 60.0 (>51); GLUCOSE, FASTING 90 MG/DL (70-105); POTASSIUM SERUM 4.2 MEQ/L (3.5-5.1); SODIUM LEVEL 140 MEQ/L (136-145)
== END ==
LOC: M SFHCPLAZ 13:06
DX: I10 Essential (primary) hypertension (principal)
CPT/HCPCS: 36415

== ENCOUNTER → 2017-09-08 | Outpatient (REF) | LOC: M SMT 12:58 | DX: M54.5 Low back pain (principal) ==

== ENCOUNTER → 2018-01-26 | Outpatient (REF) | payer OTHER ==
[2018-01-26 14:17] LABS: ALBUMIN 3.9 GM/DL (3.2-5.2); ALBUMIN/GLOBULIN RATIO 1.11 (1.00-1.93); ALKALINE PHOSPHATASE 126 U/L (45-117); ALT/SGPT 121 U/L (12-78); ANION GAP 6 MEQ/L (8-16); AST/SGOT 63 U/L (7-37); BILIRUBIN,TOTAL 0.5 MG/DL (0.2-1.0); BLOOD UREA NITROGEN 10 MG/DL (7-18); CALCIUM LEVEL 9.2 MG/DL (8.5-10.1); CARBON DIOXIDE LEVEL 28 MEQ/L (21-32); CHLORIDE LEVEL 108 MEQ/L (98-107); CREATININE FOR GFR 0.72 MG/DL (0.55-1.30); FREE T4 0.74 NG/DL (0.76-1.46); GLOMERULAR FILTRATION RATE > 60.0 (>51); GLUCOSE, FASTING 107 MG/DL (70-100); POTASSIUM SERUM 4.9 MEQ/L (3.5-5.1); SODIUM LEVEL 142 MEQ/L (136-145); TOTAL PROTEIN 7.4 GM/DL (6.4-8.2)
== END ==
LOC: M SFHCPLAZ 13:38
DX: I10 Essential (primary) hypertension (principal)

== ENCOUNTER → 2018-02-04 | Outpatient (CLI) | payer OTHER | LOC: M WHC 09:01 | DX: R79.89 Other specified abnormal findings of blood chemistry (principal) | CPT/HCPCS: 76705 ==

== ENCOUNTER 2018-03-15 14:42 | Emergency (ER) | payer OTHER | END 2018-03-15 15:27 | disposition left against medical advice (07) | LOC: M ED 14:42 | DX: R51 Headache (principal); Z53.21 Procedure and treatment not carried out due to patient leaving prior to being seen by health care provider ==

== ENCOUNTER → 2018-04-15 | Outpatient (REF) | payer OTHER | LOC: M SFHCSACK 09:15 | DX: R79.89 Other specified abnormal findings of blood chemistry (principal) ==

== ENCOUNTER → 2018-05-04 | Outpatient (CLI) | payer OTHER | LOC: M WHC 10:35 | DX: Z12.31 Encounter for screening mammogram for malignant neoplasm of breast (principal) | CPT/HCPCS: 77067 ==

== ENCOUNTER → 2018-05-04 | Outpatient (REF) | payer OTHER ==
[2018-05-06 14:17] LABS: HPV HYBRID CAPTURE II Positive (Negative)
== END ==
LOC: M SFHCWAGY 11:46
DX: N87.0 Mild cervical dysplasia (principal); Z12.4 Encounter for screening for malignant neoplasm of cervix

== ENCOUNTER → 2018-05-24 | Outpatient (REF) | payer OTHER | LOC: M SFHCWAGY 10:23 | DX: R87.810 Cervical high risk human papillomavirus (HPV) DNA test positive (principal) ==

== ENCOUNTER 2018-08-06 11:21 | Emergency (ER) | payer OTHER | END 2018-08-06 13:12 | disposition home or self-care (01) | LOC: M ED 11:21 | DX: S82.832A Other fracture of upper and lower end of left fibula, initial encounter for closed fracture (principal); W10.8XXA Fall (on) (from) other stairs and steps, initial encounter; Y92.018 Other place in single-family (private) house as the place of occurrence of the external cause; I10 Essential (primary) hypertension; K21.9 Gastro-esophageal reflux disease without esophagitis; F41.9 Anxiety disorder, unspecified; F33.9 Major depressive disorder, recurrent, unspecified; K74.60 Unspecified cirrhosis of liver; Z79.899 Other long term (current) drug therapy; Z88.0 Allergy status to penicillin; Z88.8 Allergy status to other drugs, medicaments and biological substances | CPT/HCPCS: 73610 ==

== ENCOUNTER → 2018-08-11 | Outpatient (REF) | payer OTHER ==
[~2018-08-11] MED LIST changes: -FOLI1TAB4 PO; +FOLI1TAB5 PO; +HYDR50TA70; +OXYC15TA76 PO; +PERC5TAB12 PO; +TRAZ-160 PO; -TRAZ50TA11 PO; -VALA500T2 PO; +VALA500T4 PO; +VITA200015 PO
[2018-08-11 12:48] LABS: ALBUMIN 3.6 GM/DL (3.2-5.2); ALT/SGPT 60 U/L (12-78); BILIRUBIN,TOTAL 0.4 MG/DL (0.2-1.0); BLOOD UREA NITROGEN 10 MG/DL (7-18); CALCIUM LEVEL 8.5 MG/DL (8.5-10.1); CARBON DIOXIDE LEVEL 27 MEQ/L (21-32); CHLORIDE LEVEL 104 MEQ/L (98-107); CREATININE FOR GFR 0.55 MG/DL (0.55-1.30); GLOMERULAR FILTRATION RATE > 60.0 (>51); GLUCOSE, FASTING 75 MG/DL (70-100); POTASSIUM SERUM 4.3 MEQ/L (3.5-5.1); SODIUM LEVEL 140 MEQ/L (136-145); TOTAL PROTEIN 7.3 GM/DL (6.4-8.2)
== END ==
LOC: M SFHCPLAZ 09:25
PROVIDERS: ATTEND Nurse Practitioner Adult Health
DX: Z01.818 Encounter for other preprocedural examination (principal)

== ENCOUNTER → 2019-03-24 | Outpatient (REF) | payer OTHER ==
[~2019-03-24] MED LIST changes: -DULO30CA PO; +DULO30CA9 PO; +FOLI1TAB11 PO; -FOLI1TAB5 PO; -TRAZ-160 PO; +TRAZ-252 PO; -VALA500T4 PO; +VALA500T5 PO
[2019-03-24 13:51] LABS: ALBUMIN 4.1 GM/DL (3.2-5.2); ALT/SGPT 66 U/L (12-78); BILIRUBIN,TOTAL 0.5 MG/DL (0.2-1.0); BLOOD UREA NITROGEN 14 MG/DL (7-18); CALCIUM LEVEL 9.7 MG/DL (8.5-10.1); CARBON DIOXIDE LEVEL 27 MEQ/L (21-32); CHLORIDE LEVEL 105 MEQ/L (98-107); CHOLESTEROL LEVEL 209 MG/DL (<200); CHOLESTEROL RISK RATIO 4.019 (<5); CREATININE FOR GFR 0.76 MG/DL (0.55-1.30); GLOMERULAR FILTRATION RATE > 60.0 (>51); GLUCOSE, FASTING 98 MG/DL (70-100); HDL CHOLESTEROL 52 MG/DL (>40); LDL CHOLESTEROL 128 MG/DL (<100); NON-HDL-C 157 MG/DL; POTASSIUM SERUM 4.2 MEQ/L (3.5-5.1); SODIUM LEVEL 139 MEQ/L (136-145); TOTAL 25(OH) VITAMIN D 37.1 NG/ML (30.0-100.0); TOTAL PROTEIN 7.8 GM/DL (6.4-8.2); TRIGLYCERIDES LEVEL 147 MG/DL (<150)
== END ==
LOC: M SFHCPLAZ 10:40
PROVIDERS: ATTEND Nurse Practitioner Family
DX: I10 Essential (primary) hypertension (principal); E55.9 Vitamin D deficiency, unspecified

== ENCOUNTER → 2019-04-13 | Outpatient (CLI) | payer OTHER ==
[~2019-04-13] MED LIST changes: +HYDR1TAB33 PO; -HYDRO50TAB PO
--- NOTE | 2019-04-13 12:06 | REP ---
Portal venous Doppler ultrasound: There is antegrade hepato pedal flow in the splenic vein, superior mesenteric vein and portal vein with flow toward the the hepatic periphery,. The the main portal vein measures 11.2 mm. Common biliary ducts 5.9 mm in diameter. There is no hepatic mass. There are no gallbladder calculi. There is no ascites. The peak flow velocities in the splenic vein are 24.1 cm/sec and distally and 43.0 cm/sec proximally. Peak flow velocity in the portal vein is 33 cm/sec. Peak flow velocities in the intrahepatic portal veins vary from 16 cm/sec 20 cm/sec. The peak flow velocities are in the normal range. Complete abdominal ultrasonography: There is no cholelithiasis, gallbladder wall thickening or pericholecystic fluid. There is no intrahepatic or extrahepatic biliary duct dilatation. The common biliary duct measures 5.9 mm in diameter. The hepatic parenchyma is hyperechoic compatible with hepato steatosis. The liver is normal size measuring 16.4 cm craniocaudad in the midclavicular line. The visualized areas of the pancreas are unremarkable. The spleen measures 9.9 x 9.7 x 4.8 cm for a splenic index of 412.9. The spleen is normal size, homogeneous and otherwise unremarkable. The kidneys are normal size. The right kidney measures 9.8 x 4.7 x 8.8 cm. Left kidney measures 10.1 x 4.2 x 5.2 cm. There are no renal calculi. There is no hydronephrosis. There are no solid or cystic renal masses. There is no abdominal aortic aneurysm. The proximal abdominal aorta measures 2.1 cm in diameter. The mid abdominal aorta 1.7 cm in diameter. The distal abdominal aorta. One point centimeters in diameter. There is no abdominal ascites. Impression: There is hepatic hyper echogenicity compatible with hepato steatosis. There are no hepatic masses. Otherwise, essentially negative complete abdominal ultrasound. Electronically Signed by Abhishek Beck MD 04/13/2019 11:58 A
== END ==
LOC: M RAD 09:00
PROVIDERS: ATTEND Nurse Practitioner Family
DX: R94.5 Abnormal results of liver function studies (principal)

== ENCOUNTER → 2019-05-12 | Outpatient (REF) | payer OTHER ==
[2019-05-12 19:08] LABS: BLOOD UREA NITROGEN 12 MG/DL (7-18); CALCIUM LEVEL 9.5 MG/DL (8.5-10.1); CARBON DIOXIDE LEVEL 33 MEQ/L (21-32); CHLORIDE LEVEL 89 MEQ/L (98-107); CREATININE FOR GFR 0.76 MG/DL (0.55-1.30); GLOMERULAR FILTRATION RATE > 60.0 (>51); GLUCOSE, FASTING 96 MG/DL (70-100); POTASSIUM SERUM 2.7 MEQ/L (3.5-5.1); SODIUM LEVEL 131 MEQ/L (136-145)
== END ==
LOC: M LABDRAW1 15:48
PROVIDERS: ATTEND Nurse Practitioner Family
DX: I10 Essential (primary) hypertension (principal)

== ENCOUNTER → 2019-05-17 | Outpatient (CLI) | payer OTHER ==
[2019-05-17 15:12] LABS: BLOOD UREA NITROGEN 13 MG/DL (7-18); CALCIUM LEVEL 10.1 MG/DL (8.5-10.1); CARBON DIOXIDE LEVEL 35 MEQ/L (21-32); CHLORIDE LEVEL 92 MEQ/L (98-107); CREATININE FOR GFR 0.69 MG/DL (0.55-1.30); GLOMERULAR FILTRATION RATE > 60.0 (>51); GLUCOSE, FASTING 95 MG/DL (70-100); POTASSIUM SERUM 2.8 MEQ/L (3.5-5.1); SODIUM LEVEL 136 MEQ/L (136-145)
== END ==
LOC: M LAB 12:46
PROVIDERS: ATTEND Family Medicine
DX: E87.6 Hypokalemia (principal)

== ENCOUNTER → 2019-05-19 | Outpatient (CLI) | payer OTHER ==
[~2019-05-19] MED LIST changes: -OMEP40CA2 PO; +OMEP40CA97 PO
[2019-05-19 17:33] LABS: BLOOD UREA NITROGEN 14 MG/DL (7-18); CALCIUM LEVEL 9.5 MG/DL (8.5-10.1); CARBON DIOXIDE LEVEL 32 MEQ/L (21-32); CHLORIDE LEVEL 97 MEQ/L (98-107); CREATININE FOR GFR 0.67 MG/DL (0.55-1.30); GLOMERULAR FILTRATION RATE > 60.0 (>51); GLUCOSE, FASTING 84 MG/DL (70-100); POTASSIUM SERUM 3.3 MEQ/L (3.5-5.1); SODIUM LEVEL 136 MEQ/L (136-145)
== END ==
LOC: M LAB 15:16
PROVIDERS: ATTEND Nurse Practitioner Family
DX: E87.6 Hypokalemia (principal)

== ENCOUNTER → 2019-05-25 | Outpatient (CLI) | payer OTHER ==
[~2019-05-25] MED LIST changes: +OMEP40CA2 PO; -OMEP40CA97 PO
[2019-05-25 18:56] LABS: BLOOD UREA NITROGEN 10 MG/DL (7-18); CARBON DIOXIDE LEVEL 29 MEQ/L (21-32); CHLORIDE LEVEL 107 MEQ/L (98-107); CREATININE FOR GFR 0.64 MG/DL (0.55-1.30); GLOMERULAR FILTRATION RATE > 60.0 (>51); GLUCOSE, FASTING 84 MG/DL (70-100); SODIUM LEVEL 140 MEQ/L (136-145)
== END ==
LOC: M WUC 15:11
PROVIDERS: ATTEND Nurse Practitioner Family
DX: E87.6 Hypokalemia (principal)

== ENCOUNTER → 2019-06-06 | Outpatient (CLI) | payer OTHER ==
[~2019-06-06] MED LIST changes: -OMEP40CA2 PO; +OMEP40CA97 PO
[2019-06-06 20:23] LABS: ALBUMIN 4.2 GM/DL (3.2-5.2); BLOOD UREA NITROGEN 14 MG/DL (7-18); CALCIUM LEVEL 9.6 MG/DL (8.5-10.1); CARBON DIOXIDE LEVEL 29 MEQ/L (21-32); CHLORIDE LEVEL 101 MEQ/L (98-107); CREATININE FOR GFR 0.73 MG/DL (0.55-1.30); GLOMERULAR FILTRATION RATE > 60.0 (>51); GLUCOSE, FASTING 104 MG/DL (70-100); PHOSPHORUS LEVEL 3.3 MG/DL (2.5-4.9); POTASSIUM SERUM 3.7 MEQ/L (3.5-5.1); SODIUM LEVEL 138 MEQ/L (136-145)
== END ==
LOC: M WUC 15:46
PROVIDERS: ATTEND Internal Medicine Cardiovascular Disease
DX: I10 Essential (primary) hypertension (principal)

== ENCOUNTER → 2019-06-06 | Outpatient (CLI) | payer OTHER ==
[2019-06-06 20:09] LABS: BLOOD UREA NITROGEN 15 MG/DL (7-18); CALCIUM LEVEL 9.7 MG/DL (8.5-10.1); CARBON DIOXIDE LEVEL 28 MEQ/L (21-32); CHLORIDE LEVEL 102 MEQ/L (98-107); CREATININE FOR GFR 0.76 MG/DL (0.55-1.30); GLOMERULAR FILTRATION RATE > 60.0 (>51); GLUCOSE, FASTING 105 MG/DL (70-100); POTASSIUM SERUM 3.8 MEQ/L (3.5-5.1); SODIUM LEVEL 139 MEQ/L (136-145)
== END ==
LOC: M WUC 15:49
PROVIDERS: ATTEND Nurse Practitioner Family
DX: E78.6 Lipoprotein deficiency (principal)

== ENCOUNTER → 2019-06-13 | Outpatient (CLI) | payer OTHER ==
--- NOTE | 2019-06-13 12:44 | REPMRS ---
Patient History The patient states she had a clinical breast exam in 05/2019. Patient is postmenopausal. Family history of breast cancer at age 50 or over in paternal aunt, breast cancer at age 72 in paternal aunt, colorectal cancer at age 50 or over in paternal uncle. Reductions of both breasts, 2010. 3D TOMOSYNTHESIS WAS PERFORMED. The [facility] [address] [facility] lifetime risk for breast cancer is 16.1%. Digital Woman Screen Mammo: June 13, 2019 - Exam #: [id number] Bilateral CC and MLO view(s) were taken. Technologist: Charito Martinez, Technologist Prior study comparison: May 04, 2018, bilateral digital woman screen mammo performed at [facility]. March 06, 2017, digital woman screen mammo performed at [facility] [employer] [facility]. FINDINGS: There are scattered fibroglandular densities. There has been no change in the appearance of the mammogram from the prior studies. There is a mild amount of residual fibroglandular tissue which is fairly symmetric. There is no interval development of dominant mass, architectural distortion, or clustered microcalcification suggestive of malignancy. Assessment: BI-RADS/ACR category 1 mammogram. Negative Mammogram. Recommendation Routine screening mammogram in 1 year (for women over age 40). This mammogram was interpreted with the aid of an FDA-approved computer-aided dectection system. Electronically Signed By: Abhishek Fuchs MD 06/13/19 [id number]
== END ==
LOC: M WHC 11:34
PROVIDERS: ATTEND Nurse Practitioner Women's Health
DX: Z12.31 Encounter for screening mammogram for malignant neoplasm of breast (principal); Z78.0 Asymptomatic menopausal state

== ENCOUNTER → 2019-06-13 | Outpatient (REF) | payer OTHER ==
[2019-06-15 14:07] LABS: HPV HYBRID CAPTURE II Negative (Negative)
== END ==
LOC: M SFHCWAGY 11:49
PROVIDERS: ATTEND Nurse Practitioner Women's Health
DX: Z12.4 Encounter for screening for malignant neoplasm of cervix (principal); N87.0 Mild cervical dysplasia; R87.810 Cervical high risk human papillomavirus (HPV) DNA test positive

== ENCOUNTER → 2019-09-09 | Outpatient (CLI) | payer OTHER ==
[2019-09-09 17:16] LABS: BLOOD UREA NITROGEN 18 MG/DL (7-18); CALCIUM LEVEL 9.2 MG/DL (8.5-10.1); CARBON DIOXIDE LEVEL 25 MEQ/L (21-32); CHLORIDE LEVEL 102 MEQ/L (98-107); GLOMERULAR FILTRATION RATE > 60.0 (>51); GLUCOSE, FASTING 86 MG/DL (70-100); POTASSIUM SERUM 4.5 MEQ/L (3.5-5.1); SODIUM LEVEL 137 MEQ/L (136-145)
== END ==
LOC: M WUC 14:25
PROVIDERS: ATTEND Nurse Practitioner Family
DX: E87.6 Hypokalemia (principal)

== ENCOUNTER → 2019-09-14 | Outpatient (REF) | payer OTHER ==
[2019-09-14 13:41] LABS: ALBUMIN 4.3 GM/DL (3.2-5.2); ALT/SGPT 71 U/L (12-78); BILIRUBIN,TOTAL 0.4 MG/DL (0.2-1.0); BLOOD UREA NITROGEN 12 MG/DL (7-18); CALCIUM LEVEL 9.6 MG/DL (8.5-10.1); CARBON DIOXIDE LEVEL 28 MEQ/L (21-32); CHLORIDE LEVEL 102 MEQ/L (98-107); CREATININE FOR GFR 0.72 MG/DL (0.55-1.30); GLOMERULAR FILTRATION RATE > 60.0 (>51); GLUCOSE, FASTING 92 MG/DL (70-100); POTASSIUM SERUM 4.1 MEQ/L (3.5-5.1); SODIUM LEVEL 138 MEQ/L (136-145); TOTAL PROTEIN 7.9 GM/DL (6.4-8.2)
== END ==
LOC: M SFHCPLAZ 11:00
PROVIDERS: ATTEND Nurse Practitioner Family
DX: I10 Essential (primary) hypertension (principal)

== ENCOUNTER → 2019-09-14 | Outpatient (CLI) | payer OTHER ==
--- NOTE | 2019-09-15 01:18 | REPPI ---
Clinical: Left upper quadrant pain. Technique: Upright view of the chest with supine and upright views of the abdomen and pelvis. Findings: Frontal view of the chest is unremarkable. Bowel gas pattern is relatively nonspecific and without obstruction or perforation. Moderate fecal stasis and possible constipation cannot be excluded. No organomegaly. No abnormal calcifications. Skeletal structures are intact. Impression: Nonspecific bowel gas pattern. Cannot exclude fecal stasis/constipation. Electronically Signed by Andrew Finn MD 09/15/2019 01:10 A
== END ==
LOC: M PLAIMG 11:17
PROVIDERS: ATTEND Nurse Practitioner Family
DX: R10.12 Left upper quadrant pain (principal)

== ENCOUNTER → 2019-10-05 | Outpatient (CLI) | payer OTHER ==
[2019-10-05 16:42] LABS: BLOOD UREA NITROGEN 8 MG/DL (7-18); CALCIUM LEVEL 10.2 MG/DL (8.5-10.1); CARBON DIOXIDE LEVEL 27 MEQ/L (21-32); CHLORIDE LEVEL 101 MEQ/L (98-107); CREATININE FOR GFR 0.86 MG/DL (0.55-1.30); GLOMERULAR FILTRATION RATE > 60.0 (>51); GLUCOSE, FASTING 91 MG/DL (70-100); POTASSIUM SERUM 3.8 MEQ/L (3.5-5.1); SODIUM LEVEL 136 MEQ/L (136-145)
== END ==
LOC: M WUC 14:04
PROVIDERS: ATTEND Nurse Practitioner Family
DX: I10 Essential (primary) hypertension (principal)

== ENCOUNTER → 2020-01-17 | Outpatient (CLI) | payer OTHER ==
[~2020-01-17] MED LIST changes: +OXYC-1 PO; -OXYC15TA76 PO
[2020-01-17 19:18] LABS: ALBUMIN 4.1 GM/DL (3.2-5.2); ALT/SGPT 63 U/L (12-78); BILIRUBIN,TOTAL 0.3 MG/DL (0.2-1.0); BLOOD UREA NITROGEN 14 MG/DL (7-18); CALCIUM LEVEL 9.4 MG/DL (8.5-10.1); CARBON DIOXIDE LEVEL 28 MEQ/L (21-32); CHLORIDE LEVEL 103 MEQ/L (98-107); CREATININE FOR GFR 0.74 MG/DL (0.55-1.30); GLOMERULAR FILTRATION RATE > 60.0 (>51); GLUCOSE, FASTING 97 MG/DL (70-100); SODIUM LEVEL 140 MEQ/L (136-145); TOTAL PROTEIN 7.4 GM/DL (6.4-8.2)
== END ==
LOC: M WUC 13:10
PROVIDERS: ATTEND Nurse Practitioner Family
DX: R94.5 Abnormal results of liver function studies (principal)

== ENCOUNTER → 2020-06-06 | Outpatient (CLI) | payer OTHER ==
[~2020-06-06] MED LIST changes: -ENAL20TA PO; +ENAL20TA11 PO
[2020-06-06 16:53] LABS: ALBUMIN 4.2 GM/DL (3.2-5.2); ALT/SGPT 80 U/L (12-78); BILIRUBIN,TOTAL 0.9 MG/DL (0.2-1.0); BLOOD UREA NITROGEN 16 MG/DL (7-18); CALCIUM LEVEL 10.2 MG/DL (8.5-10.1); CARBON DIOXIDE LEVEL 29 MEQ/L (21-32); CHLORIDE LEVEL 99 MEQ/L (98-107); CHOLESTEROL LEVEL 229 MG/DL (<200); CHOLESTEROL RISK RATIO 3.469 (<5); CREATININE FOR GFR 0.73 MG/DL (0.55-1.30); GLOMERULAR FILTRATION RATE > 60.0 (>51); GLUCOSE, FASTING 99 MG/DL (70-100); HDL CHOLESTEROL 66 MG/DL (>40); LDL CHOLESTEROL 127 MG/DL (<100); NON-HDL-C 163 MG/DL; POTASSIUM SERUM 3.9 MEQ/L (3.5-5.1); SODIUM LEVEL 135 MEQ/L (136-145); TOTAL 25(OH) VITAMIN D 30.1 NG/ML (30.0-100.0); TOTAL PROTEIN 7.9 GM/DL (6.4-8.2); TRIGLYCERIDES LEVEL 178 MG/DL (<150)
== END ==
LOC: M WUC 14:40
PROVIDERS: ATTEND Nurse Practitioner Family
DX: I10 Essential (primary) hypertension (principal); E78.2 Mixed hyperlipidemia; E55.9 Vitamin D deficiency, unspecified

== ENCOUNTER → 2020-06-14 | Outpatient (CLI) | payer OTHER ==
--- NOTE | 2020-06-14 15:10 | REPMRS ---
Patient History The patient states she had a clinical breast exam in May 2020.Family history of breast cancer at age 50 or over in paternal aunt, breast cancer at age 72 in paternal aunt, colorectal cancer at age 50 or over in paternal uncle. Reductions of both breasts, 2010. 3D TOMOSYNTHESIS WAS PERFORMED. [facility]%. Volpara breast density b . Digital Woman Screen Mammo: June 14, 2020 - Exam #: [id number] Bilateral CC and MLO view(s) were taken. Technologist: Meredith Raya, Technologist Prior study comparison: June 13, 2019, bilateral digital woman screen mammo performed at [facility]. May 04, 2018, bilateral digital woman screen mammo performed at [facility]. FINDINGS: There are scattered fibroglandular densities. There has been no change in the appearance of the mammogram from the prior studies. There is a mild amount of residual fibroglandular tissue which is fairly symmetric. There is no interval development of dominant mass, architectural distortion, or clustered microcalcification suggestive of malignancy. Assessment: BI-RADS/ACR category 1 mammogram. Negative Mammogram. Recommendation Routine screening mammogram in 1 year (for women over age 40). This mammogram was interpreted with the aid of an FDA-approved computer-aided dectection system. Electronically Signed By: Abhishek Fuchs MD 06/14/20 1458
== END ==
LOC: M WHC 11:17
PROVIDERS: ATTEND Nurse Practitioner Women's Health
DX: Z12.31 Encounter for screening mammogram for malignant neoplasm of breast (principal)

== ENCOUNTER → 2020-06-14 | Outpatient (REF) | payer OTHER | LOC: M SFHCWAGY 13:08 | PROVIDERS: ATTEND Nurse Practitioner Women's Health | DX: Z12.4 Encounter for screening for malignant neoplasm of cervix (principal) ==

== ENCOUNTER → 2020-09-06 | Outpatient (REF) | payer OTHER ==
[2020-09-06 16:12] LABS: ALBUMIN 4.4 GM/DL (3.2-5.2); ALT/SGPT 117 U/L (12-78); BILIRUBIN,TOTAL 0.8 MG/DL (0.2-1.0); BLOOD UREA NITROGEN 13 MG/DL (7-18); CALCIUM LEVEL 9.6 MG/DL (8.5-10.1); CARBON DIOXIDE LEVEL 30 MEQ/L (21-32); CHLORIDE LEVEL 97 MEQ/L (98-107); GLOMERULAR FILTRATION RATE > 60.0 (>51); GLUCOSE, FASTING 96 MG/DL (70-100); POTASSIUM SERUM 3.9 MEQ/L (3.5-5.1); SODIUM LEVEL 133 MEQ/L (136-145); TOTAL PROTEIN 8.1 GM/DL (6.4-8.2)
[2020-09-06 16:18] LABS: TOTAL 25(OH) VITAMIN D 33.6 NG/ML (30.0-100.0)
== END ==
LOC: M PLALAB 13:53
PROVIDERS: ATTEND Nurse Practitioner Family
DX: R94.5 Abnormal results of liver function studies (principal); E55.9 Vitamin D deficiency, unspecified

== ENCOUNTER → 2020-12-13 | Outpatient (CLI) | payer OTHER ==
[2020-12-13 16:55] LABS: MAU/CREAT RATIO 28.5 MCG/MG (0.0-30.0)
[2020-12-13 17:07] LABS: ALBUMIN 4.4 GM/DL (3.2-5.2); ALT/SGPT 73 U/L (12-78); BILIRUBIN,TOTAL 0.7 MG/DL (0.2-1.0); BLOOD UREA NITROGEN 9 MG/DL (7-18); CALCIUM LEVEL 9.8 MG/DL (8.5-10.1); CARBON DIOXIDE LEVEL 34 MEQ/L (21-32); CHLORIDE LEVEL 99 MEQ/L (98-107); CHOLESTEROL LEVEL 251 MG/DL (<200); CREATININE FOR GFR 0.72 MG/DL (0.55-1.30); GLOMERULAR FILTRATION RATE > 60.0 (>51); GLUCOSE, FASTING 97 MG/DL (70-100); HDL CHOLESTEROL 50 MG/DL (>40); LDL CHOLESTEROL 166 MG/DL (<100); NON-HDL-C 201 MG/DL; POTASSIUM SERUM 3.4 MEQ/L (3.5-5.1); SODIUM LEVEL 136 MEQ/L (136-145); TOTAL PROTEIN 8.3 GM/DL (6.4-8.2); TRIGLYCERIDES LEVEL 174 MG/DL (<150)
== END ==
LOC: M WUC 11:45
PROVIDERS: ATTEND Nurse Practitioner Family
DX: I10 Essential (primary) hypertension (principal); E78.2 Mixed hyperlipidemia

== ENCOUNTER 2021-01-12 02:02 | Emergency (ER) | payer OTHER ==
[~2021-01-12] VITALS: Ht 149.9 cm; Wt 48.4 kg
[2021-01-12] MEDS ORDERED: SPIR-10 (02:13)
[2021-01-12] MEDS ORDERED: DULO1CAP6 (02:13)
[2021-01-12] MEDS ORDERED: LORA-674 (02:13)
[2021-01-12] MEDS ORDERED: DULO1CAP5 (02:13)
[2021-01-12] MEDS ORDERED: VALA500T5 (02:13)
[2021-01-12] MEDS ORDERED: diphenhydrAMINE 50MG/ML VIAL (J1200) IV STA (03:52)
[2021-01-12] MEDS ORDERED: FAMOTIDINE INJ 20MG/2ML VIAL (S0028 PER 1) IVP ONE (03:55)
[2021-01-12] MEDS ORDERED: methylPREDNISolone 125MG 2ML VIAL IV ONE (03:55)
[2021-01-12] MEDS ORDERED: BENA25TA5 PO (06:46)
[2021-01-12] MEDS ORDERED: PRED20TA PO (06:46)
[2021-01-12] MEDS ORDERED: RANI15TA PO (06:46)
[2021-01-12] MEDS ORDERED: EPIP0.3I2 IM (06:47)
[2021-01-12 07:18] VITALS: BP 130/99
--- NOTE | 2021-01-12 08:04 | REP ---
INDICATION: left sided rib series. COMPARISON: Comparison chest x-ray 24 November 2013.. TECHNIQUE: Five views including PA chest. FINDINGS: PA chest radiograph is normal. There is no evidence of pneumothorax or hydrothorax. Mediastinum is not widened. Heart size is normal. Pulmonary vasculature is not increased. The lung corrigan are clear. Multiple views of the left ribcage show no visible rib fracture or bony destructive lesion. IMPRESSION: Negative left rib radiographic series. <Electronically signed by Benjamín Hughes > 01/12/21 0800
== END 2021-01-12 08:27 | disposition home or self-care (01) ==
LOC: M ED 02:02
DX: L50.0 Allergic urticaria (principal); S20.212A Contusion of left front wall of thorax, initial encounter; X58.XXXA Exposure to other specified factors, initial encounter; Y92.9 Unspecified place or not applicable; Y93.9 Activity, unspecified; Y99.9 Unspecified external cause status; I10 Essential (primary) hypertension; K21.9 Gastro-esophageal reflux disease without esophagitis; Z79.899 Other long term (current) drug therapy; Z88.8 Allergy status to other drugs, medicaments and biological substances; Z88.0 Allergy status to penicillin
CPT/HCPCS: 71101; 96374; 96375; 99284; J1200; J2930

== ENCOUNTER → 2021-02-18 | Outpatient (CLI) | payer OTHER ==
[~2021-02-18] MED LIST changes: +BENA25TA5 PO; +DULO1CAP5; +DULO1CAP6; +EPIP0.3I2 IM; +LORA-674; +OMEP40CA4 PO; -OMEP40CA97 PO; +PRED20TA PO; +RANI15TA PO; +SPIR-10; +VALA500T5
== END ==
LOC: M OUTALCOH 15:35
PROVIDERS: ATTEND Psychiatry & Neurology Psychiatry
DX: Z13.39 Encounter for screening examination for other mental health and behavioral disorders (principal); F10.20 Alcohol dependence, uncomplicated

== ENCOUNTER 2021-03-21 10:00 | Outpatient (RCR) | payer OTHER | END 2021-03-23 | LOC: M OUTALCOH 10:00 | PROVIDERS: ATTEND Psychiatry & Neurology Psychiatry | DX: F10.20 Alcohol dependence, uncomplicated (principal) ==

== ENCOUNTER 2021-04-10 11:00 | Outpatient (RCR) | payer OTHER | END 2021-04-23 | LOC: M OUTALCOH 11:00 | PROVIDERS: ATTEND Psychiatry & Neurology Psychiatry | DX: F10.20 Alcohol dependence, uncomplicated (principal) ==

== ENCOUNTER → 2021-05-22 | Outpatient (CLI) | payer OTHER ==
[2021-05-22 16:13] LABS: ALBUMIN 4.1 GM/DL (3.2-5.2); ALT/SGPT 28 U/L (12-78); BILIRUBIN,TOTAL 0.7 MG/DL (0.2-1.0); BLOOD UREA NITROGEN 17 MG/DL (7-18); CALCIUM LEVEL 9.4 MG/DL (8.5-10.1); CARBON DIOXIDE LEVEL 31 MEQ/L (21-32); CHLORIDE LEVEL 104 MEQ/L (98-107); CHOLESTEROL LEVEL 219 MG/DL (<200); CHOLESTEROL RISK RATIO 3.775 (<5); GLOMERULAR FILTRATION RATE > 60.0 (>51); GLUCOSE, FASTING 83 MG/DL (70-100); HDL CHOLESTEROL 58 MG/DL (>40); LDL CHOLESTEROL 139 MG/DL (<100); NON-HDL-C 161 MG/DL; SODIUM LEVEL 139 MEQ/L (136-145); TOTAL PROTEIN 7.8 GM/DL (6.4-8.2); TRIGLYCERIDES LEVEL 110 MG/DL (<150)
[2021-05-22 16:17] LABS: CREATININE, URINE 46.2 MG/DL; MAU/CREAT RATIO 10.8 MCG/MG (0.0-30.0)
[2021-05-22 16:18] LABS: TOTAL 25(OH) VITAMIN D 37.8 NG/ML (30.0-100.0)
== END ==
LOC: M PLALAB 13:14
PROVIDERS: ATTEND Nurse Practitioner Family
DX: I10 Essential (primary) hypertension (principal); E78.2 Mixed hyperlipidemia; E55.9 Vitamin D deficiency, unspecified

== ENCOUNTER → 2021-05-23 | Outpatient (RCR) | payer OTHER | LOC: M OUTALCOH 04-25 11:27 | PROVIDERS: ATTEND Psychiatry & Neurology Psychiatry | DX: F10.20 Alcohol dependence, uncomplicated (principal) ==

== ENCOUNTER 2021-05-31 13:00 | Outpatient (RCR) | payer OTHER | END 2021-06-23 | LOC: M OUTALCOH 13:00 | PROVIDERS: ATTEND Psychiatry & Neurology Psychiatry | DX: F10.20 Alcohol dependence, uncomplicated (principal) ==

== ENCOUNTER → 2021-06-18 | Outpatient (CLI) | payer OTHER ==
--- NOTE | 2021-06-18 15:09 | REPMRS ---
Patient History The patient states she had a clinical breast exam in January 2021. Family history of breast cancer at age 50 or over in paternal aunt, breast cancer at age 72 in paternal aunt, colorectal cancer at age 50 or over in paternal uncle. Reductions of both breasts, 2010. Patient states no breast complaints today. Patient has signed MRS History Sheet. Digital Woman Screen Mammo: June 18, 2021 - Exam #: [id number] Bilateral CC and MLO view(s) were taken. Technologist: Pam Coffman, Technologist Prior study comparison: June 14, 2020, bilateral digital woman screen mammo performed at [facility]. June 13, 2019, bilateral digital woman screen mammo performed at [facility]. FINDINGS: There are scattered fibroglandular densities. Screening. Digital screening (2D) and (3D) mammography was performed bilaterally. Today's exam was compared to the prior exam/exams. By history, the patient has no complaints of a palpable breast abnormality or other significant breast complaints. The patient is status post bilateral reduction mammoplasty. The Volpara volumetric breast density category is B, there are scattered areas of fibroglandular densities. There are no clark-areas of internal architectural distortion. There are no clark-soft tissue densities or areas of spiculation. There are no suspicious calcifications. IMPRESSION: BI-RADS Category 2- Benign Findings. There is no evidence of malignant alteration of the breasts. Routine bilateral screening mammogram recommended at its regularly scheduled annual interval. The lifetime Tyrer-Cuzick score is 15.4% This mammogram was read with the assistance of Tonya WedWu,an FDA approved computer aided detection system for mammography. Negative x-ray reports should not delay surgical consultation if a dominant or clinically suspicious mass is present. Not all breast cancers can be identified by mammography. Therefore, we recommend that you continue to perform regular breast self-examination and physical examination and then promptly contact your physician of any concerns or changes. Adenosis and dense breasts may obscure an underlying neoplasm. No significant changes when compared with prior studies. Assessment: BI-RADS/ACR category 2 mammogram. Benign Findings. Recommendation Routine screening mammogram of both breasts in 1 year. Electronically Signed By: Shilo Hairston MD 06/18/21 [id number]
== END ==
LOC: M WHC 11:08
PROVIDERS: ATTEND Nurse Practitioner Women's Health
DX: Z12.31 Encounter for screening mammogram for malignant neoplasm of breast (principal); Z80.3 Family history of malignant neoplasm of breast; Z80.0 Family history of malignant neoplasm of digestive organs

== ENCOUNTER → 2021-06-18 | Outpatient (REF) | payer OTHER | LOC: M SFHCWAGY 19:17 | PROVIDERS: ATTEND Nurse Practitioner Women's Health | DX: Z12.4 Encounter for screening for malignant neoplasm of cervix (principal); N95.2 Postmenopausal atrophic vaginitis ==

== ENCOUNTER → 2021-11-28 | Outpatient (CLI) | payer OTHER ==
[2021-11-28 16:18] LABS: BASO # 0.1 10^3/uL (0.0-0.2); BASO % 0.8 % (0.0-1.0); EOS # 0.3 10^3/uL (0.0-0.5); EOS % 3.6 % (0.0-3.0); HEMATOCRIT 41.3 % (36.0-47.0); HEMOGLOBIN 14.1 g/dl (12.0-15.5); LYMPH # 2.8 10^3/uL (1.5-5.0); LYMPH % 32.5 % (24.0-44.0); MEAN CORPUSCULAR HEMOGLOBIN 28.5 pg (27.0-33.0); MEAN CORPUSCULAR HGB CONC 34.1 g/dl (32.0-36.5); MEAN CORPUSCULAR VOLUME 83.4 fl (80.0-96.0); MONO # 0.9 10^3/uL (0.0-0.8); MONO % 10.5 % (2.0-8.0); NEUTROPHILS # 4.4 10^3/uL (1.5-8.5); NEUTROPHILS % 52.1 % (36.0-66.0); PLATELET COUNT, AUTOMATED 280 10^3/uL (150-450); RED BLOOD COUNT 4.95 10^6/uL (4.00-5.40); WHITE BLOOD COUNT 8.5 10^3/uL (4.0-10.0)
[2021-11-28 16:44] LABS: HEMOGLOBIN A1c 5.1 %
[2021-11-28 16:47] LABS: ALBUMIN 4.4 GM/DL (3.2-5.2); ALT/SGPT 43 U/L (12-78); BILIRUBIN,TOTAL 0.7 MG/DL (0.2-1.0); BLOOD UREA NITROGEN 19 MG/DL (7-18); CALCIUM LEVEL 10.2 MG/DL (8.5-10.1); CARBON DIOXIDE LEVEL 32 MEQ/L (21-32); CHLORIDE LEVEL 101 MEQ/L (98-107); CHOLESTEROL LEVEL 237 MG/DL (<200); CHOLESTEROL RISK RATIO 4.157 (<5); CREATININE FOR GFR 0.74 MG/DL (0.55-1.30); FREE T4 0.94 NG/DL (0.76-1.46); GLOMERULAR FILTRATION RATE > 60.0 (>51); GLUCOSE, FASTING 112 MG/DL (70-100); HDL CHOLESTEROL 57 MG/DL (>40); LDL CHOLESTEROL 150 MG/DL (<100); NON-HDL-C 180 MG/DL; POTASSIUM SERUM 4.1 MEQ/L (3.5-5.1); SODIUM LEVEL 137 MEQ/L (136-145); TRIGLYCERIDES LEVEL 151 MG/DL (<150)
[2021-11-28 16:48] LABS: TOTAL 25(OH) VITAMIN D 34.8 NG/ML (30.0-100.0)
[2021-11-28 16:56] LABS: MALB URINE SIEMENS 13.2 MG/L; MAU/CREAT RATIO 6.5 MCG/MG (0.0-30.0)
== END ==
LOC: M PLALAB 11:34
PROVIDERS: ATTEND Physician Assistant
DX: I10 Essential (primary) hypertension (principal); E78.2 Mixed hyperlipidemia; E55.9 Vitamin D deficiency, unspecified; F32.9 Major depressive disorder, single episode, unspecified; Z13.1 Encounter for screening for diabetes mellitus

== ENCOUNTER → 2022-09-01 | Outpatient (CLI) | payer OTHER ==
[2022-09-01 17:06] LABS: BLOOD UREA NITROGEN 17 MG/DL (9-23); CALCIUM LEVEL 9.7 MG/DL (8.5-10.1); CARBON DIOXIDE LEVEL 30 MMOL/L (20-31); CHLORIDE LEVEL 99 MMOL/L (98-107); CREATININE FOR GFR 0.68 MG/DL (0.55-1.30); GLOMERULAR FILTRATION RATE > 60.0 (>51); GLUCOSE, FASTING 103 MG/DL (60-100); POTASSIUM SERUM 3.5 MMOL/L (3.5-5.1); SODIUM LEVEL 137 MMOL/L (136-145)
== END ==
LOC: M WUC 11:31
PROVIDERS: ATTEND Physician Assistant
DX: I10 Essential (primary) hypertension (principal)

== ENCOUNTER → 2022-09-01 | Outpatient (CLI) | payer OTHER ==
[2022-09-01 17:10] LABS: CHOLESTEROL RISK RATIO 3.75 (<5); HDL CHOLESTEROL 59.2 MG/DL (>40); LDL CHOLESTEROL 118.8 MG/DL (<100)
== END ==
LOC: M WUC 11:34
PROVIDERS: ATTEND Physician Assistant
DX: E78.2 Mixed hyperlipidemia (principal)

== ENCOUNTER → 2022-09-03 | Outpatient (REF) | payer OTHER | LOC: M PLALAB 12:02 | PROVIDERS: ATTEND Advanced Practice Midwife | DX: Z12.4 Encounter for screening for malignant neoplasm of cervix (principal); N95.2 Postmenopausal atrophic vaginitis ==

== ENCOUNTER → 2022-09-03 | Outpatient (CLI) | payer OTHER | LOC: M WHC 11:43 | PROVIDERS: ATTEND Advanced Practice Midwife | DX: Z12.31 Encounter for screening mammogram for malignant neoplasm of breast (principal); N63.24 Unspecified lump in the left breast, lower inner quadrant ==

== ENCOUNTER → 2022-09-17 | Outpatient (CLI) | payer OTHER | LOC: M WHC 15:03 | PROVIDERS: ATTEND Advanced Practice Midwife | DX: N60.02 Solitary cyst of left breast (principal) ==

== ENCOUNTER → 2022-12-31 | Outpatient (REF) | payer OTHER ==
[~2022-12-31] MED LIST changes: +ENAL1TAB52 PO; -ENAL20TA11 PO
[2022-12-31 16:31] LABS: BASO # 0.1 10^3/uL (0.0-0.2); BASO % 0.7 % (0.0-1.0); EOS # 0.3 10^3/uL (0.0-0.5); EOS % 2.9 % (0.0-3.0); HEMATOCRIT 40.1 % (36.0-47.0); HEMOGLOBIN 13.8 g/dl (12.0-15.5); LYMPH # 3.4 10^3/uL (1.5-5.0); LYMPH % 32.3 % (24.0-44.0); MEAN CORPUSCULAR HEMOGLOBIN 29.8 pg (27.0-33.0); MEAN CORPUSCULAR HGB CONC 34.4 g/dl (32.0-36.5); MEAN CORPUSCULAR VOLUME 86.6 fl (80.0-96.0); MONO % 9.3 % (2.0-8.0); NEUTROPHILS # 5.7 10^3/uL (1.5-8.5); NEUTROPHILS % 53.9 % (36.0-66.0); PLATELET COUNT, AUTOMATED 286 10^3/uL (150-450); RED BLOOD COUNT 4.63 10^6/uL (4.00-5.40); WHITE BLOOD COUNT 10.6 10^3/uL (4.0-10.0)
[2022-12-31 16:41] LABS: BLOOD UREA NITROGEN 14 MG/DL (9-23); CALCIUM LEVEL 9.6 MG/DL (8.5-10.1); CARBON DIOXIDE LEVEL 30 MMOL/L (20-31); CHLORIDE LEVEL 101 MMOL/L (98-107); CREATININE FOR GFR 0.69 MG/DL (0.55-1.30); GLOMERULAR FILTRATION RATE > 60.0 (>51); GLUCOSE, FASTING 95 MG/DL (60-100); POTASSIUM SERUM 3.8 MMOL/L (3.5-5.1); SODIUM LEVEL 138 MMOL/L (136-145)
[2022-12-31 17:11] LABS: THYROID STIMULATING HORMONE 0.921 uIU/ML (0.55-4.78)
[2022-12-31 17:13] LABS: FREE T4 1.03 NG/DL (0.89-1.76); VITAMIN B12 LEVEL 503 PG/ML (211-911)
[2022-12-31 17:14] LABS: FOLATE > 24.0 NG/ML (>5.4)
[2022-12-31 17:15] LABS: TOTAL 25(OH) VITAMIN D 58.2 NG/ML (20.0-100.0)
== END ==
LOC: M SFHCADAM 14:34
PROVIDERS: ATTEND Physician Assistant
DX: I10 Essential (primary) hypertension (principal); E53.8 Deficiency of other specified B group vitamins; E55.9 Vitamin D deficiency, unspecified

== ENCOUNTER → 2023-01-13 | Outpatient (CLI) | payer OTHER ==
[2023-01-14 11:37] LABS: APPEARANCE, URINE HAZY (CLEAR); BACTERIA, URINE AUTO 3+ (NEGATIVE); BILIRUBIN, URINE AUTO NEGATIVE (NEGATIVE); BLOOD, URINE BLOOD 1+ (NEGATIVE); COLOR, URINE YELLOW (YELLOW); GLUCOSE, URINE (UA) AUTO NEGATIVE (NEGATIVE); KETONE, URINE AUTO NEGATIVE (NEGATIVE); LEUKOCYTE ESTERASE, URINE AUTO 3+ (NEGATIVE); MUCUS, URINE SMALL (NEGATIVE); NITRITE, URINE AUTO NEGATIVE (NEGATIVE); PROTEIN, URINE AUTO NEGATIVE (NEGATIVE); RBC, URINE AUTO 9 /HPF (0-3); SPECIFIC GRAVITY URINE AUTO 1.006 (1.002-1.035); SQUAMOUS EPITHELIAL CELL UR AU 3 /HPF (0-6); UROBILINOGEN, URINE AUTO 0.2 mg/dL (0.0-2.0); WBC, URINE AUTO 36 /HPF (0-3)
== END ==
LOC: M PLAIMG 14:37
PROVIDERS: ATTEND Family Medicine
DX: R58 Hemorrhage, not elsewhere classified (principal); R30.0 Dysuria; N39.0 Urinary tract infection, site not specified

== ENCOUNTER → 2023-09-02 | Outpatient (REF) | payer OTHER ==
[~2023-09-02] MED LIST changes: +LORA-1041; -LORA-674
[2023-09-02 17:46] LABS: BASO # 0.1 10^3/uL (0.0-0.2); BASO % 0.7 % (0.0-1.0); EOS # 0.2 10^3/uL (0.0-0.5); EOS % 3.1 % (0.0-3.0); HEMATOCRIT 38.9 % (36.0-47.0); LYMPH # 2.6 10^3/uL (1.5-5.0); LYMPH % 37.1 % (24.0-44.0); MEAN CORPUSCULAR HEMOGLOBIN 29.1 pg (27.0-33.0); MEAN CORPUSCULAR HGB CONC 33.4 g/dl (32.0-36.5); MEAN CORPUSCULAR VOLUME 87.2 fl (80.0-96.0); MONO # 0.7 10^3/uL (0.0-0.8); NEUTROPHILS # 3.4 10^3/uL (1.5-8.5); NEUTROPHILS % 48.8 % (36.0-66.0); PLATELET COUNT, AUTOMATED 271 10^3/uL (150-450); RED BLOOD COUNT 4.46 10^6/uL (4.00-5.40)
[2023-09-02 18:10] LABS: THYROID STIMULATING HORMONE 1.169 uIU/ML (0.55-4.78); TOTAL 25(OH) VITAMIN D 45.5 NG/ML (20.0-100.0)
[2023-09-02 18:13] LABS: FREE T4 1.03 NG/DL (0.89-1.76)
[2023-09-02 18:14] LABS: BLOOD UREA NITROGEN 19 MG/DL (9-23); CALCIUM LEVEL 10.1 MG/DL (8.5-10.1); CARBON DIOXIDE LEVEL 29 MMOL/L (20-31); CHLORIDE LEVEL 102 MMOL/L (98-107); CREATININE FOR GFR 0.65 MG/DL (0.55-1.30); GLOMERULAR FILTRATION RATE > 60.0 (>51); GLUCOSE, FASTING 86 MG/DL (60-100); POTASSIUM SERUM 4.3 MMOL/L (3.5-5.1); SODIUM LEVEL 139 MMOL/L (136-145)
== END ==
LOC: M SFHCADAM 13:45
PROVIDERS: ATTEND Physician Assistant
DX: I10 Essential (primary) hypertension (principal); R53.83 Other fatigue

== ENCOUNTER → 2023-10-22 | Outpatient (CLI) | payer OTHER | LOC: M WHC 13:18 | PROVIDERS: ATTEND Advanced Practice Midwife | DX: Z12.31 Encounter for screening mammogram for malignant neoplasm of breast (principal); Z13.820 Encounter for screening for osteoporosis; M85.89 Other specified disorders of bone density and structure, multiple sites ==

== ENCOUNTER → 2023-10-22 | Outpatient (REF) | payer OTHER | LOC: M SFHCWAGY 15:09 | PROVIDERS: ATTEND Advanced Practice Midwife | DX: Z12.4 Encounter for screening for malignant neoplasm of cervix (principal); R87.612 Low grade squamous intraepithelial lesion on cytologic smear of cervix (LGSIL) ==

== ENCOUNTER → 2024-02-02 | Outpatient (CLI) | payer OTHER | LOC: M RAD 09:20 | PROVIDERS: ATTEND Physician Assistant | DX: R22.1 Localized swelling, mass and lump, neck (principal) ==

== ENCOUNTER → 2024-03-15 | Outpatient (REF) | payer OTHER ==
[2024-03-15 18:38] LABS: BLOOD UREA NITROGEN 13 MG/DL (9-23); CALCIUM LEVEL 9.9 MG/DL (8.5-10.1); CARBON DIOXIDE LEVEL 29 MMOL/L (20-31); CHLORIDE LEVEL 102 MMOL/L (98-107); CREATININE FOR GFR 0.87 MG/DL (0.55-1.30); GLOMERULAR FILTRATION RATE > 60.0 (>51); GLUCOSE, FASTING 92 MG/DL (60-100); SODIUM LEVEL 136 MMOL/L (136-145)
== END ==
LOC: M SFHCADAM 14:23
PROVIDERS: ATTEND Nurse Practitioner Family
DX: I10 Essential (primary) hypertension (principal)

== ENCOUNTER → 2024-06-30 | Outpatient (CLI) | payer OTHER | LOC: M ADAMS 12:08 | PROVIDERS: ATTEND Physician Assistant | DX: M18.11 Unilateral primary osteoarthritis of first carpometacarpal joint, right hand (principal); M61.441 Other calcification of muscle, right hand ==

== ENCOUNTER → 2024-10-05 | Outpatient (CLI) | payer OTHER | LOC: M RAD 10:34 | PROVIDERS: ATTEND Physician Assistant | DX: S06.0X0A Concussion without loss of consciousness, initial encounter (principal); X58.XXXA Exposure to other specified factors, initial encounter; Y92.9 Unspecified place or not applicable; Y93.9 Activity, unspecified; Y99.9 Unspecified external cause status ==